=== PATIENT | male | born 1990 | race Caucasian/White ===

== ENCOUNTER 2016-11-06 20:00 | Emergency (ER) | payer MEDICAID, OTHER ==
[2016-11-06] MEDS ORDERED: ONDANSETRON ODT 4 MG TABLET TL STA (20:25)
[2016-11-06] MEDS ORDERED: ONDANSETRON ODT 4 MG TABLET ONE (20:32)
== END 2016-11-06 21:39 | disposition home or self-care (01) ==
DX: S06.0X0A Concussion without loss of consciousness, initial encounter (principal); S00.12XA Contusion of left eyelid and periocular area, initial encounter; M54.2 Cervicalgia; V47.5XXA Car driver injured in collision with fixed or stationary object in traffic accident, initial encounter
CPT/HCPCS: 70450; 72125; 99283; 99284; Q0162

== ENCOUNTER 2017-08-25 08:00 | Outpatient (CLI) | payer MEDICAID ==
[2017-08-25 12:24] LABS: BASOPHILS % (AUTO) 0.5 %; EOSINOPHILS # (AUTO) 0.2 10^3/uL (0.0-0.7); EOSINOPHILS % (AUTO) 1.8 %; HCT - HEMATOCRIT 41.1 % (42.0-52.0); HGB - HEMOGLOBIN 13.9 g/dL (14.0-18.0); LYMPHOCYTES % (AUTO) 32.6 %; MEAN CORPUSCULAR HGB CONC 33.9 g/dL (32.0-36.0); MEAN CORPUSCULAR VOLUME 85.8 fL (80.0-94.0); MEAN PLATELET VOLUME 8.2 fL (7.4-11.4); MONOCYTES # (AUTO) 0.7 10^3/uL (0.0-1.0); MONOCYTES % (AUTO) 8.2 %; NEUTROPHILS # (AUTO) 5.2 10^3/uL (1.5-6.6); NEUTROPHILS % (AUTO) 56.9 %; NUCLEATED RED BLOOD CELLS AUTO 0.1 /100WBC; RED BLOOD COUNT 4.79 10^6/uL (4.70-6.10); RED CELL DISTRIBUTION WIDTH 12.6 % (12.0-15.0); UNCORRECTED WHITE BLOOD COUNT 9.1 x10^3/uL; WHITE BLOOD COUNT 9.1 x10^3/uL (4.8-10.8)
[2017-08-25 12:31] LABS: ALBUMIN/GLOBULIN RATIO 1.5 (1.0-2.2); BILIRUBIN,TOTAL 0.7 mg/dL (0.2-1.0); BUN - BLOOD UREA NITROGEN 13 mg/dL (6-20); CARBON DIOXIDE - CO2 27 mmol/L (21-32); CHLORIDE 101 mmol/L (101-111); CHOL/HDL RATIO 5.5 (<5.0); CHOLESTEROL 215 mg/dL; CREATININE 0.8 mg/dL (0.6-1.2); GFR - MDRD 116 (>89); GLUCOSE 97 mg/dL (70-100); HDL CHOLESTEROL 39 mg/dL; LDL/HDL RATIO 3.5 (<3.6); POTASSIUM 3.8 mmol/L (3.5-5.0); SODIUM 138 mmol/L (135-145); TOTAL PROTEIN 8.1 g/dL (6.7-8.2); TRIGLYCERIDES 190 mg/dL; VLDL CHOLESTEROL 38 mg/dL
[2017-08-25 13:14] LABS: HEMOGLOBIN A1C 0.53 g/dL
== END 2017-08-25 08:01 | disposition home or self-care (01) ==
LOC: LAB.N 08:00
PROVIDERS: ATTEND Physician Assistant Medical
DX: Z82.49 Family history of ischemic heart disease and other diseases of the circulatory system (principal); E66.9 Obesity, unspecified; R10.13 Epigastric pain; Z83.3 Family history of diabetes mellitus
CPT/HCPCS: 36415; 80053; 80061; 83036; 84443; 85025

== ENCOUNTER 2017-11-25 18:41 | Outpatient (CLI) | payer MEDICAID | END 2017-11-25 18:42 | disposition EMS.NT | LOC: EMS 18:41 | PROVIDERS: ATTEND Surgery | DX: R06.02 Shortness of breath (principal); R07.9 Chest pain, unspecified; F41.9 Anxiety disorder, unspecified; R61 Generalized hyperhidrosis ==

== ENCOUNTER 2018-08-11 06:48 | Outpatient (CLI) | payer MEDICAID | END 2018-08-11 06:49 | disposition critical access hospital (66) | LOC: EMS 06:48 | PROVIDERS: ATTEND Surgery | DX: R41.0 Disorientation, unspecified (principal) | CPT/HCPCS: A0425; A0429; A0999 ==

== ENCOUNTER 2018-08-11 07:08 | Emergency (ER) | payer MEDICAID ==
[2018-08-11] MEDS ORDERED: SODIUM CHLORIDE 0.9% 1,000 ML IV ONE (07:33)
--- NOTE | 2018-08-11 07:35 | ED Physician Documentation ---
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 has taken 2 days of suboxone next dose 830 AM was feeling fine last night - no fever cough NVD CP palp etc just his chronic back pain unchanged from prior he awoke on the floor this AM after a syncopal episode SO was asleep so unwitnessed duration, pulse breathing seizure etc all unknown thinks maybe he was up to go urinate he has no TOM or bumps bruises etc to suggest a head injury he feels fine now Review of Systems Constitutional: denies: Fever, Chills Cardiac: denies: Chest pain / pressure Respiratory: denies: Dyspnea, Cough GI: denies: Abdominal Pain Neurologic: reports: Syncope Endocrine: denies: Easy bruising / bleeding Immunocompromised: denies: Immunocompromised PD PAST MEDICAL HISTORY - Past Medical History Psych: Anxiety Musculoskeletal: Chronic back pain - Past Surgical History Past Surgical History: Yes Ortho: Spine surgery - Present Medications Home Medications: Ambulatory Orders Medication Instructions Recorded Confirmed Buprenorphine HCl/Naloxone HCl 1 each 08/11/18 [Suboxone 4 mg-1 mg Sl Film] Mupirocin Calcium [Bactroban] 1 applic TP BID #15 g 08/11/18 - Allergies Allergies/Adverse Reactions: Allergies Allergy/AdvReac Type Severity Reaction Status Date / Time No Known Drug Allergies Allergy Verified 08/11/18 07:20 - Social History Does the pt smoke?: No Smoking Status: Never smoker Does the pt drink ETOH?: Yes Does the pt have substance abuse?: Yes - Immunizations Immunizations are current?: Yes - POLST Patient has POLST: No PD ED PE NORMAL - Vitals Vital signs reviewed: Yes - General General: Alert and oriented X 3 - Neck Neck: Supple, no meningeal sign - Cardiac Cardiac: RRR - Respiratory Respiratory: No respiratory distress - Abdomen Abdomen: Soft, Non tender - Back Back: Other (no redness swellign warmth) - Derm Derm: Normal color, Other - Extremities Extremities: Normal ROM s pain, Other (denuded burn to index s infection) - Neuro Neuro: Alert and oriented X 3, No motor deficit, No sensory deficit Eye Opening: Spontaneous Motor: Obeys Commands Verbal: Oriented GCS Score: 15 - Psych Psych: Normal mood Results - Vitals Vitals: Vital Signs - 24 hr 08/11/18 08/11/18 07:16 08:56 Temperature 36.7 C 36.4 C L Heart Rate 93 85 Respiratory 16 18 Rate Blood Pressure 143/70 H 130/68 O2 Saturation 99 99 Oxygen O2 Source Room air - EKG (time done) 0750 Rate: Rate (enter#) Rhythm: NSR (82) [place]: Normal Intervals: Normal MI QRS: Normal Other comments: Other comments (NSR, nl QT, no delta wave, no ectopy to explain syncope) - Labs Labs: Laboratory Tests 08/11/18 08/11/18 08/11/18 07:30 07:30 08:30 WBC 11.8 H RBC 4.53 L Hgb 13.4 L Hct 39.5 L MCV 87.2 MCH 29.6 MCHC 33.9 RDW 13.0 Plt Count 319 MPV 7.5 Neut # (Auto) 7.7 H Lymph # (Auto) 2.7 [place] # (Auto) 1.0 Eos # (Auto) 0.4 Baso # (Auto) 0.0 Absolute Nucleated RBC 0.01 Nucleated RBC % 0.1 Sodium 136 Potassium 3.5 Chloride 103 Carbon Dioxide 26 Anion Gap 7.0 BUN 13 Creatinine 0.8 Estimated GFR (MDRD) 115 Glucose 100 Calcium 9.4 Urine Color YELLOW Urine Clarity CLEAR Urine pH 6.5 Ur Specific [place] 1.015 Urine Protein NEGATIVE Urine Glucose (UA) NEGATIVE Urine Ketones NEGATIVE Urine Occult Blood NEGATIVE Urine Nitrite NEGATIVE Urine Bilirubin NEGATIVE Urine Urobilinogen 0.2 (NORMAL) Ur Leukocyte Esterase NEGATIVE Ur Microscopic Review NOT INDICATED Urine Culture Comments NOT INDICATED Departure - Departure Disposition: 01 Home, Self Care Clinical Impression: Burn Syncope Qualifiers: Syncope type: unspecified Qualified Code(s): R55 - Syncope and collapse Condition: Good Instructions: ED Fainting Unkn Cause, ED Burn D 2nd Follow-Up: Richa Burt ARNP [Primary Care Provider] - Prescriptions: Mupirocin Calcium [Bactroban] 1 applic TP BID #15 g Comments: Your EKG and several hours of heart monitoring showed no irregular heart rhythm to cause you to pass out. It does not appear you hit you head to cause a concussion etc Your labs are fine I am not sure exactly what happened. But given your reassuring work up and no recurrence of symptoms while in the ER for several hours I think it is safe for you to go home for now Please do not drive for 24 hr Please stay with another adult who can keep an eye on you. And please follow up with your PMD to discuss getting some further testing as an outpatient - such as an ultrasound of your heart and a wear at home heart monitor Forms: Activity restrictions
[2018-08-11 07:42] LABS: BASOPHILS % (AUTO) 0.3 %; EOSINOPHILS # (AUTO) 0.4 10^3/uL (0.0-0.7); EOSINOPHILS % (AUTO) 3.2 %; HGB - HEMOGLOBIN 13.4 g/dL (14.0-18.0); LYMPHOCYTES # (AUTO) 2.7 10^3/uL (1.5-3.5); LYMPHOCYTES % (AUTO) 22.8 %; MEAN CORPUSCULAR HEMOGLOBIN 29.6 pg (27.0-31.0); MEAN CORPUSCULAR HGB CONC 33.9 g/dL (32.0-36.0); MEAN CORPUSCULAR VOLUME 87.2 fL (80.0-94.0); MEAN PLATELET VOLUME 7.5 fL (7.4-11.4); MONOCYTES % (AUTO) 8.8 %; NEUTROPHILS # (AUTO) 7.7 10^3/uL (1.5-6.6); NEUTROPHILS % (AUTO) 64.9 %; PLT - PLATELET COUNT 319 10^3/uL (130-450); RED BLOOD COUNT 4.53 10^6/uL (4.70-6.10); WHITE BLOOD COUNT 11.8 x10^3/uL (4.8-10.8)
[2018-08-11 07:57] LABS: CALCIUM 9.4 mg/dL (8.5-10.3); CREATININE 0.8 mg/dL (0.6-1.2)
[2018-08-11 08:57] VITALS: BP 130/68
[2018-08-11 09:18] LABS: MUDS CUTOFF CONCENTRATIONS CUTOFF CONC BELOW:
[2018-08-11 09:20] LABS: BILIRUBIN,URINE NEGATIVE (NEGATIVE); GLUCOSE, URINE (UA) NEGATIVE (NEGATIVE); KETONES,URINE (UA) NEGATIVE (NEGATIVE); LEUKOCYTE ESTERASE, URINE NEGATIVE (NEGATIVE); NITRITE,URINE NEGATIVE (NEGATIVE); OCCULT BLOOD,URINE NEGATIVE (NEGATIVE); PH,URINE 6.5 PH (5.0-7.5); PROTEIN,URINE NEGATIVE (NEGATIVE); UROBILINOGEN,URINE 0.2 (NORMAL) E.U./dL (NORMAL)
[2018-08-11 09:24] LABS: CLARITY,URINE CLEAR (CLEAR)
[2018-08-11] MEDS ORDERED: ACETAMINOPHEN 325 MG TABLET PO STA (09:26)
[2018-08-11] MEDS ORDERED: IBUPROFEN 800 MG TABLET PO STA (09:26)
[2018-08-11 09:37] LABS: AMPHETAMINE SCREEN,URINE POSITIVE (NEGATIVE); BENZODIAZEPINES SCREEN, URINE NEGATIVE (NEGATIVE); COCAINE SCREEN URINE NEGATIVE (NEGATIVE); METHADONE SCREEN, URINE NEGATIVE (NEGATIVE); METHAMPHETAMINES SCREEN, URINE NEGATIVE (NEGATIVE); OPIATE SCREEN, URINE POSITIVE (NEGATIVE); OXYCODONE SCREEN, URINE POSITIVE (NEGATIVE); PROPOXYPHENE SCREEN, URINE NEGATIVE (NEGATIVE); TRICYCLIC ANTIDEPRESSANT,URINE NEGATIVE (NEGATIVE)
== END 2018-08-11 09:41 | disposition home or self-care (01) ==
LOC: EDUNIT# → ED 07:08
DX: R55 Syncope and collapse (principal); T23.229A Burn of second degree of unspecified single finger (nail) except thumb, initial encounter
CPT/HCPCS: 36415; 80048; 80306; 81003; 85025; 93005; 96360; 99283; A9270; 81001; 87086

== ENCOUNTER 2018-09-19 03:09 | Outpatient (CLI) | payer MEDICAID | END 2018-09-19 03:10 | disposition critical access hospital (66) | LOC: EMS 03:09 | PROVIDERS: ATTEND Surgery | DX: R06.02 Shortness of breath (principal) | CPT/HCPCS: A0425; A0427; A0999 ==

== ENCOUNTER 2018-09-19 03:27 | Emergency (ER) | payer MEDICAID ==
[2018-09-19 03:35] VITALS: BP 143/85
[2018-09-19] MEDS ORDERED: predniSONE 20 MG TABLET PO STA (03:41)
[2018-09-19] MEDS ORDERED: LEVALBUTEROL 1.25 MG/3 ML NEB INH STA (03:41)
--- NOTE | 2018-09-19 03:45 | ED Physician Documentation ---
History of Present Illness - Stated complaint Stated Complaint: SOB - Chief complaint Chief Complaint: Resp - Additonal information Additional information: hx from pt 28 male drug use (he states heroin and marijuana, states smokes only no IVDA, last used both this AM) also hx asthma and his whole family has been sick with colds (all took OTC meds and got better s medical tx) no travel he has been sich recently with a bad cough smoked some marijuana this AM and started wheezing and was SOA so called 911 got duoneb en route feeling better no Review of Systems Constitutional: denies: Fever Throat: denies: Sore throat Respiratory: reports: Cough, Wheezing GI: denies: Vomiting, Diarrhea Musculoskeletal: denies: Extremity swelling Endocrine: denies: Easy bruising / bleeding Immunocompromised: denies: Immunocompromised PD PAST MEDICAL HISTORY - Past Medical History Respiratory: Asthma Psych: Anxiety Musculoskeletal: Chronic back pain - Past Surgical History Past Surgical History: Yes Ortho: Spine surgery - Present Medications Home Medications: Ambulatory Orders Medication Instructions Recorded Confirmed Buprenorphine HCl/Naloxone HCl 1 each 08/11/18 [Suboxone 4 mg-1 mg Sl Film] Mupirocin Calcium [Bactroban] 1 applic TP BID #15 g 08/11/18 Albuterol Sulfate [Proair Hfa 2 puffs INH Q4H PRN #1 inhaler 09/19/18 Inhaler] predniSONE [Prednisone] 60 mg PO DAILY 5 Days tablet 09/19/18 - Allergies Allergies/Adverse Reactions: Allergies Allergy/AdvReac Type Severity Reaction Status Date / Time No Known Drug Allergies Allergy Verified 09/19/18 03:34 - Social History Does the pt smoke?: No Smoking Status: Never smoker Does the pt drink ETOH?: Yes Does the pt have substance abuse?: Yes Substance Use and Type: Marijuana, Heroin - Immunizations Immunizations are current?: Yes - POLST Patient has POLST: No PD ED PE NORMAL - Vitals Vital signs reviewed: Yes (tachy) - General General: Alert and oriented X 3 - Neck Neck: Supple, no meningeal sign - Cardiac Cardiac: RRR, No murmur - Respiratory Respiratory: No respiratory distress, Other (coarse and decreased) - Derm Derm: Normal color - Extremities Extremities: No edema, No calf tenderness / cord - Neuro Neuro: Alert and oriented X 3 Results - Vitals Vitals: Vital Signs - 24 hr 09/19/18 09/19/18 03:29 03:52 Temperature 36.2 C L Heart Rate 133 H 109 H Respiratory 20 16 Rate Blood Pressure 143/85 H O2 Saturation 94 Oxygen O2 Source Room air - Labs Labs: Laboratory Tests 09/19/18 03:49 Influenza A (Rapid) Negative Influenza B (Rapid) Negative - Rads (name of study) CXR Radiology: See rad report (no acute process) PD MEDICAL DECISION MAKING - ED course ED course: HR came down s intervention - likely 2/2 neb tx Departure - Departure Disposition: Home, Self Care Clinical Impression: Bronchitis Asthma Qualifiers: Asthma severity: unspecified severity Asthma persistence: unspecified Asthma complication type: with acute exacerbation Qualified Code(s): J45.901 - Unspecified asthma with (acute) exacerbation Condition: Good Instructions: ED Bronchitis Asthmatic, ED Inhaler Use Prescriptions: Albuterol Sulfate [Proair Hfa Inhaler] 2 puffs INH Q4H PRN #1 inhaler PRN Reason: Shortness Of Air/Wheezing predniSONE [Prednisone] 60 mg PO DAILY 5 Days tablet Comments: The xray does not show pneumonia The flu swabs were negative. Please stop using drugs - we gave you a booklet with information about local resources to help you. Use the inhaler every 4-6 h as needed. And take the steroids once a day to decrease airway swelling
--- NOTE | 2018-09-19 04:25 | XRAY Report ---
Reason: soa Procedure Date: 09/19/2018 Accession Number: [id number] / [id number] Procedure: XR - Chest 2 View X-Ray CPT Code: 86364 FULL RESULT: EXAM: CHEST RADIOGRAPHY EXAM DATE: 09/19/2018 04:12 AM. CLINICAL HISTORY: Shortness of breath. COMPARISON: CHEST 2 VIEW PA/LAT 09/25/2014 9:29 AM. TECHNIQUE: 2 views. FINDINGS: Lungs/Pleura: No alveolar consolidation or pleural effusion seen. No pneumothorax. Mediastinum: Heart and mediastinal contours are unremarkable. Other: None. IMPRESSION: 1. No acute abnormality seen in the chest. RADIA
== END 2018-09-19 04:52 | disposition home or self-care (01) ==
LOC: EDUNIT# → ED 03:27
DX: J45.901 Unspecified asthma with (acute) exacerbation (principal); R00.0 Tachycardia, unspecified; F11.10 Opioid abuse, uncomplicated; F12.10 Cannabis abuse, uncomplicated
CPT/HCPCS: 71046; 87275; 87276; 94640; 99283; J7512

== ENCOUNTER 2019-02-24 12:07 | Outpatient (CLI) | payer MEDICAID | END 2019-02-24 12:08 | disposition critical access hospital (66) | LOC: EMS 12:07 | PROVIDERS: ATTEND Surgery | DX: R55 Syncope and collapse (principal) | CPT/HCPCS: A0425; A0427; A0999 ==

== ENCOUNTER 2019-02-24 12:25 | Emergency (ER) | payer MEDICAID ==
[2019-02-24 13:03] LABS: BASOPHILS % (AUTO) 0.3 %; EOSINOPHILS % (AUTO) 0.3 %; HGB - HEMOGLOBIN 13.3 g/dL (14.0-18.0); LYMPHOCYTES # (AUTO) 1.3 10^3/uL (1.5-3.5); LYMPHOCYTES % (AUTO) 11.4 %; MEAN CORPUSCULAR HEMOGLOBIN 29.6 pg (27.0-31.0); MEAN CORPUSCULAR HGB CONC 34.1 g/dL (32.0-36.0); MEAN CORPUSCULAR VOLUME 86.7 fL (80.0-94.0); MEAN PLATELET VOLUME 7.6 fL (7.4-11.4); MONOCYTES # (AUTO) 0.7 10^3/uL (0.0-1.0); MONOCYTES % (AUTO) 6.2 %; NEUTROPHILS % (AUTO) 81.8 %; PLT - PLATELET COUNT 283 10^3/uL (130-450); RED CELL DISTRIBUTION WIDTH 13.1 % (12.0-15.0)
[2019-02-24 13:16] LABS: ALBUMIN 4.5 g/dL (3.2-5.5); ALBUMIN/GLOBULIN RATIO 1.5 (1.0-2.2); BILIRUBIN,TOTAL 0.5 mg/dL (0.2-1.0); CALCIUM 9.2 mg/dL (8.5-10.3); CREATININE 0.8 mg/dL (0.6-1.2); TOTAL PROTEIN 7.6 g/dL (6.7-8.2)
--- NOTE | 2019-02-24 13:44 | ED Physician Documentation ---
History of Present Illness - Stated complaint Stated Complaint: SYNCOPE - Chief complaint Chief Complaint: General - History obtained from History obtained from: Patient, Family, EMS - History of Present Illness Timing: Today - Additonal information Additional information: 28-year-old male who has a narcotic addiction to about 3 g/day and he has been doing this for about 6 months. He is trying to get off of heroin so he has stopped the heroin and he borrowed some Suboxone from someone. Today he has had syncopal episode x3 in his home. These were witnessed by his and he was not otherwise injured. The patient indicates that he has not had anything to eat for 2 days and he has had scant to drink. He has had a similar episode previously with Suboxone and syncope. Following that episode the patient was evaluated at the hospital and he was eventually started on methadone which apparently worked well for him.The patient reports that he had some issues with back pain took some pain medications when he got cut off from the pain clinic for not showing up he eventually started using heroin. Review of Systems Constitutional: reports: Chills, Fatigue, Sweats. denies: Fever Eyes: denies: Decreased vision Ears: denies: Ear pain Nose: denies: Rhinorrhea / runny nose, Congestion Throat: denies: Sore throat Cardiac: denies: Chest pain / pressure, Palpitations Respiratory: denies: Dyspnea, Cough GI: reports: Abdominal Pain, Nausea, Vomiting, Diarrhea : denies: Dysuria, Frequency Skin: denies: Rash Musculoskeletal: reports: Back pain. denies: Neck pain, Extremity pain Neurologic: reports: Syncope. denies: Generalized weakness, Focal weakness, Numbness, Seizure, Headache, Head injury PD PAST MEDICAL HISTORY - Past Medical History Respiratory: Asthma Psych: Anxiety Musculoskeletal: Chronic back pain - Past Surgical History Past Surgical History: Yes Ortho: Spine surgery - Present Medications Home Medications: Ambulatory Orders Medication Instructions Recorded Confirmed Buprenorphine HCl/Naloxone HCl 16 mg PO DAILY 02/24/19 02/24/19 [Suboxone 8 mg-2 mg Sl Film] Promethazine [Phenergan] 25 - 50 mg PO Q6H PRN #10 tab 02/24/19 RX: cloNIDine [Catapres] 0.1 mg PO TID #20 tablet 02/24/19 - Allergies Allergies/Adverse Reactions: Allergies Allergy/AdvReac Type Severity Reaction Status Date / Time No Known Drug Allergies Allergy Verified 02/24/19 12:32 - Social History Does the pt smoke?: No Smoking Status: Never smoker Does the pt drink ETOH?: No Does the pt have substance abuse?: Yes Substance Use and Type: Marijuana, Heroin - Immunizations Immunizations are current?: Yes - POLST Patient has POLST: No PD ED PE NORMAL - Vitals Vital signs reviewed: Yes (normal ) - General General: Alert and oriented X 3, Well developed/nourished, Other (appears pale and speaks softley) - HEENT HEENT: Atraumatic, PERRL, EOMI - Neck Neck: Supple, no meningeal sign - Cardiac Cardiac: No murmur, Other (tachy sitting up to 100) - Respiratory Respiratory: No respiratory distress, Clear bilaterally - Abdomen Abdomen: Soft, Non tender - Back Back: No CVA TTP, No spinal TTP - Derm Derm: Warm and dry, No rash, Other (pale ) - Extremities Extremities: No deformity, No edema - Neuro Neuro: Alert and oriented X 3, learning and development administrator 2-12 intact, No motor deficit, No sensory deficit, Normal speech Eye Opening: Spontaneous Motor: Obeys Commands Verbal: Oriented GCS Score: 15 - Psych Psych: Other (mood is withdrawn and the affect is flat) Results - Vitals Vitals: Vital Signs - 24 hr 02/24/19 02/24/19 02/24/19 12:26 13:19 14:08 Temperature 35.7 C L Heart Rate 68 70 71 Respiratory 11 L 17 18 Rate Blood Pressure 130/69 134/79 H 100/80 O2 Saturation 99 97 97 02/24/19 02/24/19 16:00 16:41 Temperature Heart Rate 83 75 Respiratory 24 13 Rate Blood Pressure 115/81 H 112/62 O2 Saturation 98 96 Oxygen O2 Source Room air Oxygen Flow Rate 3 - Labs Labs: Laboratory Tests 02/24/19 02/24/19 02/24/19 12:58 12:58 13:50 WBC 11.0 H RBC 4.50 L Hgb 13.3 L Hct 39.0 L MCV 86.7 MCH 29.6 MCHC 34.1 RDW 13.1 Plt Count 283 MPV 7.6 Neut # (Auto) 9.0 H Lymph # (Auto) 1.3 L [place] # (Auto) 0.7 Eos # (Auto) 0.0 Baso # (Auto) 0.0 Absolute Nucleated RBC 0.01 Nucleated RBC % 0.1 Sodium 136 Potassium 3.9 Chloride 104 Carbon Dioxide 22 Anion Gap 10.0 BUN 11 Creatinine 0.8 Estimated GFR (MDRD) 115 Glucose 112 H Calcium 9.2 Total Bilirubin 0.5 AST 35 ALT 37 Alkaline Phosphatase 71 Total Protein 7.6 Albumin 4.5 Globulin 3.1 Albumin/Globulin Ratio 1.5 Lipase 25 Urine Color YELLOW Urine Clarity CLEAR Urine pH 7.0 Ur Specific [place] <=1.005 Urine Protein NEGATIVE Urine Glucose (UA) NEGATIVE Urine Ketones NEGATIVE Urine Occult Blood NEGATIVE Urine Nitrite NEGATIVE Urine Bilirubin NEGATIVE Urine Urobilinogen 0.2 (NORMAL) Ur Leukocyte Esterase NEGATIVE Ur Microscopic Review NOT INDICATED Urine Culture Comments NOT INDICATED Urine Opiates Screen POSITIVE H Ur Oxycodone Screen NEGATIVE Urine Methadone Screen NEGATIVE Ur Propoxyphene Screen NEGATIVE Ur Barbiturates Screen NEGATIVE Ur Tricyclics Screen POSITIVE H Ur Phencyclidine Scrn NEGATIVE Ur Amphetamine Screen NEGATIVE U Methamphetamines Scrn NEGATIVE U Benzodiazepines Scrn NEGATIVE Urine Cocaine Screen NEGATIVE U Cannabinoids Screen POSITIVE H Procedures - IVC sono (time) 1340 Bedside IVC sono: IVC measures (cm) (1.33), IVC collapsed c insp (cm) (complete), Dehydration (est 1 liter deficit after 500ml is in.) PD MEDICAL DECISION MAKING - ED course Complexity details: reviewed old records, reviewed results, re-evaluated patient, considered differential, d/w patient, d/w family ED course: 28 y/o male with heroin withdrawal has syncope again after taking suboxone. He is in the early stages of withdrawal and he is dehydrated. He is administered IV bananabag and clonidine. He feels much improved after hydration and we will send him home with a prescription for some clonidine and some promethazine. He does have resources provided to him through the social science manager for the methadone clinic. Departure - Departure Disposition: 01 Home, Self Care Clinical Impression: Narcotic withdrawal, Dehydration Condition: Stable Instructions: ED Dehydration, ED Withdrawal Narcotic Follow-Up: [facility] [Provider Group] Prescriptions: RX: cloNIDine [Catapres] 0.1 mg PO TID #20 tablet Promethazine [Phenergan] 25 - 50 mg PO Q6H PRN #10 tab PRN Reason: Nausea / Vomiting Discharge Date/Time: 02/24/19 16:50
[2019-02-24] MEDS ORDERED: FOLIC ACID INJ 1 MG, THIAMINE INJ 100 MG, MAGNESIUM SULFATE 2 GM, MULTIVITAMIN 10 ML in... IV STA ×5 (13:48)
[2019-02-24] MEDS ORDERED: cloNIDine 0.1 MG TABLET PO STA (13:48)
[2019-02-24] MEDS ORDERED: KETOROLAC 30 MG/ML VIAL IVP STA (13:49)
[2019-02-24 13:57] LABS: MUDS CUTOFF CONCENTRATIONS CUTOFF CONC BELOW:
[2019-02-24 14:03] LABS: BILIRUBIN,URINE NEGATIVE (NEGATIVE); GLUCOSE, URINE (UA) NEGATIVE (NEGATIVE); KETONES,URINE (UA) NEGATIVE (NEGATIVE); LEUKOCYTE ESTERASE, URINE NEGATIVE (NEGATIVE); NITRITE,URINE NEGATIVE (NEGATIVE); OCCULT BLOOD,URINE NEGATIVE (NEGATIVE); PROTEIN,URINE NEGATIVE (NEGATIVE); UROBILINOGEN,URINE 0.2 (NORMAL) E.U./dL (NORMAL)
[2019-02-24 14:09] LABS: CLARITY,URINE CLEAR (CLEAR)
[2019-02-24 14:14] LABS: AMPHETAMINE SCREEN,URINE NEGATIVE (NEGATIVE); BENZODIAZEPINES SCREEN, URINE NEGATIVE (NEGATIVE); COCAINE SCREEN URINE NEGATIVE (NEGATIVE); METHADONE SCREEN, URINE NEGATIVE (NEGATIVE); METHAMPHETAMINES SCREEN, URINE NEGATIVE (NEGATIVE); OPIATE SCREEN, URINE POSITIVE (NEGATIVE); OXYCODONE SCREEN, URINE NEGATIVE (NEGATIVE); PROPOXYPHENE SCREEN, URINE NEGATIVE (NEGATIVE); TRICYCLIC ANTIDEPRESSANT,URINE POSITIVE (NEGATIVE)
[2019-02-24 16:43] VITALS: BP 112/62
== END 2019-02-24 16:50 | disposition home or self-care (01) ==
LOC: EDUNIT# → ED 12:25
DX: F11.23 Opioid dependence with withdrawal (principal); E86.0 Dehydration; R55 Syncope and collapse
CPT/HCPCS: 36415; 80053; 80306; 81003; 83690; 85025; 93005; 96365; 96375; 99284; A9270; J3411; 81001; 87086

== ENCOUNTER 2020-07-29 16:59 | Outpatient (CLI) | payer MEDICAID | END 2020-07-29 17:00 | disposition EMS.NT | LOC: EMS 16:59 | PROVIDERS: ATTEND Surgery | DX: S09.90XA Unspecified injury of head, initial encounter (principal); R42 Dizziness and giddiness; W20.8XXA Other cause of strike by thrown, projected or falling object, initial encounter; Y93.H3 Activity, building and construction ==

== ENCOUNTER 2020-07-29 17:51 | Emergency (ER) | payer MEDICAID ==
[2020-07-29] MEDS ORDERED: LIDOCAINE-EPINEPH-TETRACAINE 3 ML SYRINGE TOP STA (18:13)
[2020-07-29] MEDS ORDERED: TETANUS/DIPHTHERIA/PERTUSSIS 0.5 ML SYRINGE IM ONE (18:13)
[2020-07-29] MEDS ORDERED: IBUPROFEN 800 MG TABLET PO STA (18:13)
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
[2020-07-29] MEDS ORDERED: BUFFERED LIDOCAINE 10 ML SYRINGE SUBQ STA (18:43)
--- NOTE | 2020-07-29 18:43 | CT Report ---
PROCEDURE: HEAD WO INDICATIONS: head inj TECHNIQUE: Noncontrast 4.5 mm thick angled axial sections acquired from the foramen magnum to the vertex. For r adiation dose reduction, the following was used: automated exposure control, adjustment of mA and/or kV according to patient size. COMPARISON: 11/06/2016, 07/18/2013. FINDINGS: Image quality: Diagnostic CSF spaces: Basal cisterns are patent. No extra-axial fluid collections. Ventricles are normal in size and shape. Brain: No midline shift. No intracranial masses or hemorrhage. [place]-white matter interface is norm al. Skull and face: Calvarium and visualized facial bones are intact, without suspicious lesions. Sinuses: Visualized sinuses and mastoids are clear. IMPRESSION: No intracranial hemorrhage is seen. No significant intracranial abnormality is seen. Reviewed by: Chico Navarrete MD on 07/29/2020 5:41 PM AKELDA Approved by: Chico Navarrete MD on 07/29/2020 5:41 PM AKELDA Station ID: [id number]
[2020-07-29 19:12] VITALS: BP 130/59
== END 2020-07-29 19:21 | disposition home or self-care (01) ==
LOC: ED 17:51
DX: S06.0X1A Concussion with loss of consciousness of 30 minutes or less, initial encounter (principal); S01.01XA Laceration without foreign body of scalp, initial encounter; W29.8XXA Contact with other powered hand tools and household machinery, initial encounter; W11.XXXA Fall on and from ladder, initial encounter; Y93.89 Activity, other specified; Z23 Encounter for immunization
CPT/HCPCS: 12002; 70450; 90471; 90715; 99284; A9270

== ENCOUNTER 2020-10-11 15:50 | Outpatient (CLI) | payer MEDICAID ==
[2020-10-11 17:03] VITALS: BP 114/65
--- NOTE | 2020-10-11 17:03 | SLEEP CARE CONSULTATION ---
Information from patient questionnaire entered by Nettie Pierce. I have reviewed and concur with the information entered by Nettie Pierce. This document represents the service I personally performed and the decisions made by me, Patti White ARNP. History of Present Illness Service Date and Time: 10/11/2020 1550 Reason for Visit: New patient (Last seen 2012), Re-establish care Chief Complaint: reports: Unrefreshed sleep, Snoring, Excessive daytime sleepiness, Observed pauses in breathing, Frequent awakenings at night Date of Onset: 1 year Usual bedtime: 9 PM or 10 PM Time it takes to fall asleep: 1 hr to 1 hr 1/2 Snores at night: Yes Observed to quit breathing while asleep: Yes Sleeps alone due to snoring: Yes (sometimes) Number of times waking at night: 3 to 4 Reasons for waking at night: reports: Choking, Snoring, Gasping for air, Bathroom Toss, Turn, or Twitch while sleeping: Yes Recalls having dreams: Yes Usually gets out of bed at: 5 AM or 6 AM Feels refreshed in the morning: No Morning headache: Yes (2 times a week that last 30-1 hr, takes meds with resolution) Sleepy or fatigued during the day: Yes Ever fallen asleep while driving: No Takes day naps: Yes (daily, mostly when watching TV) Dreams during day naps: No Prior sleep studies: Yes Year and Where: 2012 [facility] Type of Sleep Study: Polysomnography Additional HPI information: I had the pleasure of seeing JUSTINO QUINN today regarding the possibility of him having a sleep disorder. His current complaints are snoring, observed pauses in breathing and frequent night awakenings. He had a previous sleep study in 2013 that was not conclusive for significant sleep apnea with an average AHI of 2.2. He has since gained about 35 pounds in last 7 years. His girlfriend has been telling him that he snores loudly and has stopped breathing when sleeping. He has woke up gasping, choking and snoring. He states he has a dry mouth that wakes him up at night too. He feels groggy and not quite awake when he has to get up to the bathroom. He falls asleep daily when watching television or sometimes when looking at his phone. He denies drowsy driving or any accidents due to falling asleep at the wheel. He states it takes him a long time to get to sleep so he takes melatonin nightly. He states he takes 2 10 mg tablets which does help him go to sleep. - Parasomnia Symptoms Ever been unable to move upon waking from sleep: No Walks in sleep: No Talks in sleep: Yes Ever acted out dreams in sleep: Yes (once time) Ever felt weak in the knees when startled or emotional: Yes Bothered by creepy, crawly, restless sensations in legs: Yes Problems with memory or concentration: Yes Subjective Initial Magnolia Sleepiness Scale score: 15 (in 2020 (18 in 2012)) Past Medical History Past Medical History: denies: Hypertension, Diabetes, Arrythmia, Anxiety, Depression, Mood disorder, GERD Social History The patient's occupation not employed. Patient is single and lives in [place]. Have you smoked in the past 12 months: Yes (occasional cigarette now) Quit date: 1 year ago Alcohol use: No Caffeine use: Yes Caffeine amount and frequency: In morning 2 cups Family History Family history of sleep disordered breathing: Yes (Dad has sleep apnea and snoring) Family Hx Sleep Apnea: Father: Snoring, Sleep apnea - Treated () Allergies and Home Medications Drug allergies reviewed: Yes (NKDA) Home medication list reviewed: Yes Allergy and home medication list: melatonin 10 mg x2, most nights Methadone 160 mg daily in morning Review of Systems Cardiovascular: denies: high blood pressure, irregular heart rate or pulse Respiratory: reports: shortness of breath Gastrointestinal: reports: heartburn, nausea Urinary: reports: frequency Neurological: reports: headaches, speech dysfunction Psychiatric: denies: anxiety, depression, mood disorder Ear/Nose/Throat: reports: nasal congestion, sinus problems, nose bleeds, dry mouth/throat, wisdom teeth removed. denies: tonsillectomy Endocrine: reports: too hot or cold. denies: thyroid disease Musculoskeletal: reports: neck pain, back pain, mobility problems Immunologic: reports: sneezing (runny nose). denies: allergies to food or environment Physical Exam Blood Pressure: 114/65 Cuff size: wrist Heart Rate: 70 O2 Saturation: 98 Height: 6 ft 3 in Weight: 310 lb Body Mass Index: 38.7 BMI Classification: Obese Neck circumference: 17 (inches) Nostrils: patent to airflow Turbinates: normal Mouth and throat: narrow oropharynx Uvula visualization: 50% Mallampati Class II Tongue: normal in size Tonsils: 1+ Heart: regular rate and rhythm Lungs: clear bilaterally Impression and Plan 1. Suspected Obstructive Sleep Apnea-Hypopnea Syndrome, as suggested by a history of loud and irregular snoring, observed cessation of breath while asleep, gasping or choking in sleep, morning headache, frequent awakening during the night, unrefreshed sleep, cognitive impairment, and excessive daytime sleepiness. I reviewed with the patient that a narrow oropharynx and obesity are common predisposing factors for obstructive sleep apnea-hypopnea syndrome. I recommend proceeding to polysomnography to confirm the diagnosis and to assess severity. If the patient has significant sleep disordered breathing, a manual CPAP titration study will also be performed to find the optimal treatment pressure. I informed the patient of what the sleep studies involve and after some discussion, obtained agreement to proceed. The pathophysiology of obstructive sleep apnea-hypopnea syndrome was discussed with the patient and health risks of cardiovascular and cerebrovascular disease if not treated. AASM brochure for obstructive sleep apnea-hypopnea syndrome given and reviewed. Risks of drowsy driving discussed in detail and patient advised to avoid long distance driving and to puller over at the first sign of drowsiness. Patient agreed to plan. * Schedule polysomnography +- manual CPAP titration study and return in 1-2 weeks after the study to discuss result and initiate therapy. * Avoid long distance driving or driving when feeling sleepy. * Avoid alcohol, sedative and muscle relaxant around bedtime. * Attempt to lose weight. * Review instructions provided by trained office staff on how to prepare for the sleep study. * Return for follow-up after sleep study completed. Counseling Topics: Weight loss health impact Visit Type: In Office Time Spent with Patient (minutes): 30 Provider Statement: I spent 100% of the Face to Face Visit with the patient with greater than 50% spent counseling the patient and coordination of care.
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
== END 2020-10-11 15:51 | disposition home or self-care (01) ==
LOC: SC 15:50
PROVIDERS: ATTEND Nurse Practitioner Family
DX: G47.10 Hypersomnia, unspecified (principal); R41.89 Other symptoms and signs involving cognitive functions and awareness; G47.8 Other sleep disorders; R51.9 Headache, unspecified; R06.81 Apnea, not elsewhere classified; R06.83 Snoring; E66.9 Obesity, unspecified; Z68.38 Body mass index [BMI] 38.0-38.9, adult
CPT/HCPCS: 99203; 99212

== ENCOUNTER 2020-11-04 10:15 | Outpatient (CLI) | payer MEDICAID | END 2020-11-04 10:16 | disposition home or self-care (01) | LOC: SC 10:15 | PROVIDERS: ATTEND Nurse Practitioner Family | DX: G47.33 Obstructive sleep apnea (adult) (pediatric) (principal); E66.9 Obesity, unspecified; Z68.38 Body mass index [BMI] 38.0-38.9, adult | CPT/HCPCS: 95806 ==

== ENCOUNTER 2020-11-08 15:30 | Outpatient (CLI) | payer MEDICAID ==
--- NOTE | 2020-11-08 15:53 | SLEEP CARE CONSULTATION ---
Information from patient questionnaire entered by Julissa Champagne. I have reviewed and concur with the information entered by Julissa Champagne. This document represents the service I personally performed and the decisions made by , Patti White ARNP. History of Present Illness Service Date and Time: 11/08/2020 1530 Initial [place] Sleepiness Scale score: 15 (in 2020 (18 in 2012)) Current Stuart Sleepiness Scale score: 21 Additional HPI information: JUSTINO QUINN returns for follow up and results of the recently performed home sleep study. I explained the pathophysiology behind obstructive sleep apnea. We then spent quite a bit of time discussing different treatment options. For mild obstructive sleep apnea, surgery and oral appliance are alternatives to nasal CPAP therapy but in moderate or severe cases, nasal CPAP is the most effective and reliable treatment. Because apnea is primarily in supine position, then positional management therapy could be effective. Methods discussed such as positioning with pillows, using a T-shirt with tennis balls in the back, and shown commercial products that have a pillow format on back to prevent supine sleep. I reviewed the impact of weight changes on sleep apnea and strongly recommended losing weight. After some discussion, the patient opted to go with the nasal CPAP therapy. Nasal autoCPAP set at 4-15 cmH20 will be ordered with rationale explained. A manual titration study will be ordered if unable to find optimal pressure with office adjustments. I explained how CPAP machine works with sample devices Respironics Dreamstation and ResAmeriprime [id number] and what to expect when using the machine. Using CPAP every night in order to get used to it was emphasized. Patient advised to put CPAP mask on before getting into bed so as not to fall asleep without CPAP. To assist acclimation to CPAP use, it could also be used for a short time during day while reading or watching TV. The patient was instructed to call the CPAP supplier to discuss any mechanical problem that may occur. If the mask given is uncomfortable or is difficult to keep on through the night even with adjustment, contact the CPAP supplier as many will replace with another mask style if not ified before 30 days. If snoring or perceives is not getting enough air or too much air from the machine, notify this office. AAS patient education PAP tips reviewed and given to patient. Patient does not drink alcohol. Patient was cautioned about risks of drowsy driving until sleepiness symptoms resolve. Sleep Study - Results Type of Sleep Study: Home sleep study Prior sleep studies: Yes Year and Where: 2012 [facility] Polysomnography/Home Sleep Study results: The quality of the study is good. The length of the study is adequate (> 240 minutes). Please also see the tabulated and graphic data. 1. Obstructive Sleep Apnea-Hypopnea (ICD-10 G47.33), severe, with an AHI of 74.0 /hr and karen SaO2 of 80%. During the study, the patient had 620 apneas (611 obstructive, 3 central, 6 mixed) and 45 hypopneas. The longest episode lasted 61.5 seconds. The respiratory events occurred independently of sleep stage and body position (supine AHI was 76.6 and non-supine, 59.50). 2. Hypoxemia (ICD-10 R09.02), moderate, with the lowest oxygen saturation of 80 % and 77.2 minutes with SaO2 under 90%. Baseline oxygen saturation was normal (Average oxygen saturation was 93%). Allergies and Home Medications Home medication list reviewed: Yes (no changes) Review of Systems Review of systems same as previous: Yes (no changes) Physical Exam Heart Rate: 76 O2 Saturation: 98 Height: 6 ft 3 in Weight: 319 lb Body Mass Index: 39.9 BMI Classification: Obese Impression and Plan 1. Obstructive Sleep Apnea-Hypopnea Syndrome, very severe, with lowest oxygen saturation of 80%. Obviously this is the cause of the patients symptoms of unrefreshed sleep, and excessive daytime sleepiness. Positive pressure therapy could benefit his overall health and reduce risks of cardiovascular or cerebrovascular adverse events. As mentioned above, the patient will be started urgently due to the very severe nature of his ODETTE on nasal autoCPAP therapy with pressure set at 4-15 cmH2O. A manual titration study will be completed if unable to find optimal treatment pressure with office adjustments. Compliance guidelines also reviewed. A copy of compliance guidelines will be given for reference at check out. Because the apnea is more severe supine, I instructed to avoid sleeping supine using pillow positioning until able to start CPAP use. 2. Hypoxemia, moderate. His karen oxygen saturation was 80 % and he spent 77.2 minutes with SaO2 under 90%. His baseline oxygen saturation was normal with an average oxygen saturation at 93%. * Nasal auto CPAP therapy, pressure at 4-15 cm H2O. * Attempt to lose weight. * Avoid alcohol consumption near bedtime. * Avoid supine sleep until using CPAP. * The patient is again cautioned about driving until sleepiness completely resolves. * Return one month after CPAP obtained. I will assess response to therapy and compliance at that time. Counseling Topics: Weight loss health impact Visit Type: In Office Time Spent with Patient (minutes): 22 Provider Statement: I spent 100% of the Face to Face Visit with the patient with greater than 50% spent counseling the patient and coordination of care.
== END 2020-11-08 15:31 | disposition home or self-care (01) ==
LOC: SC 15:30
PROVIDERS: ATTEND Nurse Practitioner Family
DX: G47.33 Obstructive sleep apnea (adult) (pediatric) (principal); R09.02 Hypoxemia; E66.9 Obesity, unspecified; Z68.39 Body mass index [BMI] 39.0-39.9, adult
CPT/HCPCS: 99212; 99213

== ENCOUNTER 2021-11-20 12:19 | Day surgery (SDC) | payer MEDICAID ==
[2021-11-20 13:04] LABS: BASOPHILS % (AUTO) 0.2 %; EOSINOPHILS # (AUTO) 0.2 10^3/uL (0.0-0.7); EOSINOPHILS % (AUTO) 1.1 %; HCT - HEMATOCRIT 48.8 % (42.0-52.0); HGB - HEMOGLOBIN 16.4 g/dL (14.0-18.0); LYMPHOCYTES # (AUTO) 1.1 10^3/uL (1.5-3.5); LYMPHOCYTES % (AUTO) 4.9 %; MEAN CORPUSCULAR HEMOGLOBIN 30.3 pg (27.0-31.0); MEAN CORPUSCULAR HGB CONC 33.6 g/dL (32.0-36.0); MEAN CORPUSCULAR VOLUME 90.2 fL (80.0-94.0); MEAN PLATELET VOLUME 10.1 fL (7.4-11.4); MONOCYTES # (AUTO) 1.3 10^3/uL (0.0-1.0); NEUTROPHILS # (AUTO) 18.9 10^3/uL (1.5-6.6); NEUTROPHILS % (AUTO) 87.4 %; PLT - PLATELET COUNT 288 10^3/uL (130-450); RED BLOOD COUNT 5.41 10^6/uL (4.70-6.10); RED CELL DISTRIBUTION WIDTH 12.6 % (12.0-15.0); WHITE BLOOD COUNT 21.6 x10^3/uL (4.8-10.8)
--- NOTE | 2021-11-20 13:10 | ED Physician Documentation ---
PD HPI ABD PAIN - Stated complaint Stated Complaint: ABD PX - Chief complaint Chief Complaint: Abd Pain - History obtained from History obtained from: Patient - History of Present Illness Timing - onset: Yesterday Timing - duration: Days (1) Timing - details: Abrupt onset, Still present Quality: Cramping, Aching, Pain Location: RUQ, Periumbilical Radiation: Upper back. No: Chest, Worsened by: Eating Associated symptoms: Nausea. No: Fever, Vomiting, Diarrhea Similar symptoms before: Has not had sx before Recently seen: Not recently seen Review of Systems Constitutional: reports: Chills, Myalgias. denies: Fever Nose: denies: Rhinorrhea / runny nose, Congestion Throat: denies: Sore throat Respiratory: denies: Cough GI: reports: Abdominal Pain, Nausea, Constipation (no BM for 4 days right now but typically has BM only every couple of days the past year since on methadone for treatment drug addiction. He is doing well on meds with only mild recent med increase from 160 to 165 mg daily.). denies: Abdominal Swelling, Vomiting : denies: Dysuria, Discharge Skin: denies: Rash PD PAST MEDICAL HISTORY - Past Medical History Cardiovascular: None Respiratory: Asthma Psych: Anxiety Musculoskeletal: Chronic back pain - Past Surgical History Past Surgical History: Yes Ortho: Spine surgery - Present Medications Home Medications: Ambulatory Orders Medication Instructions Recorded Confirmed cloNIDine [Catapres] 0.1 mg PO TID #20 tablet 02/24/19 Ibuprofen [Motrin] 800 mg PO Q8H PRN #30 tablet 07/29/20 Gabapentin [Neurontin] 300 mg PO TID 11/20/21 11/20/21 Methadone HCl 165 mg PO DAILY 11/20/21 11/20/21 Rosuvastatin Calcium [Crestor] 20 mg PO 11/20/21 - Allergies Allergies/Adverse Reactions: Allergies Allergy/AdvReac Type Severity Reaction Status Date / Time No Known Drug Allergies Allergy Verified 11/20/21 12:27 - Living Situation Living Situation: reports: Alone Living Arrangement: reports: At home - Social History Does the pt smoke?: No Smoking Status: Never smoker Does the pt drink ETOH?: No Does the pt have substance abuse?: Yes Substance Use and Type: Other (previous narcotic abuse/addiction treated currently with methadone the past 1 1/2 years. Prior to that was Suboxone. ) - Immunizations Immunizations are current?: Yes - POLST Patient has POLST: No PD ED PE NORMAL - Vitals Vital signs reviewed: Yes - General General: Alert and oriented X 3, Well developed/nourished, Other (appears in discomfort due to abd pain.) - HEENT HEENT: Pharynx benign - Neck Neck: Supple, no meningeal sign, No adenopathy - Cardiac Cardiac: RRR, No murmur - Respiratory Respiratory: No respiratory distress, Clear bilaterally - Abdomen Abdomen: Soft, Non distended, No organomegaly, Other (tender mid abdomen to upper central/right abd. Guarding. No percussion nor rebound tenderness. Bowel sounds are diminished. ) - Back Back: No CVA TTP - Derm Derm: Normal color, Warm and dry - Extremities Extremities: Normal ROM s pain, No edema, No calf tenderness / cord - Neuro Neuro: Alert and oriented X 3, No motor deficit, Normal speech Results - Vitals Vitals: Vital Signs - 24 hr 11/20/21 11/20/21 11/20/21 12:27 13:24 14:38 Temperature 36.5 C Heart Rate 84 80 60 Heart Rate [ Brachial] Respiratory 16 20 10 L Rate Blood Pressure 160/100 H 128/75 Blood Pressure [Right Brachial artery] O2 Saturation 97 96 11/20/21 11/20/21 11/20/21 16:36 18:23 19:29 Temperature 36.3 C L Heart Rate 67 70 Heart Rate [ Brachial] Respiratory 22 18 14 Rate Blood Pressure 126/55 L 123/69 Blood Pressure [Right Brachial artery] O2 Saturation 95 95 99 11/20/21 11/20/21 19:55 22:00 Temperature 37.4 C Heart Rate Heart Rate [ 72 78 Brachial] Respiratory 16 16 Rate Blood Pressure Blood Pressure 120/61 [Right Brachial artery] O2 Saturation 100 99 Oxygen O2 Source Room air - Labs Labs: Laboratory Tests 11/20/21 11/20/21 11/20/21 12:59 12:59 14:00 WBC 21.6 H RBC 5.41 Hgb 16.4 Hct 48.8 MCV 90.2 MCH 30.3 MCHC 33.6 RDW 12.6 Plt Count 288 MPV 10.1 Neut # (Auto) 18.9 H Lymph # (Auto) 1.1 L [place] # (Auto) 1.3 H Eos # (Auto) 0.2 Baso # (Auto) 0.0 Absolute Nucleated RBC 0.00 Nucleated RBC % 0.0 Manual Slide Review Indicated Platelet Estimate NORMAL (130-450,000) Platelet Morphology NORMAL APPEARANCE RBC Morph Micro Appear NORMAL APPEARANCE Sodium 134 L Potassium 4.1 Chloride 95 L Carbon Dioxide 29 Anion Gap 10.0 BUN 14 Creatinine 0.9 Estimated GFR (MDRD) 98 Glucose 128 H Calcium 9.7 Total Bilirubin 1.0 AST 41 ALT 41 Alkaline Phosphatase 64 Total Protein 8.4 H Albumin 5.2 Globulin 3.3 Albumin/Globulin Ratio 1.6 Lipase 24 Urine Color YELLOW Urine Clarity CLEAR Urine pH 6.0 Ur Specific Badger 1.020 Urine Protein 100 H Urine Glucose (UA) NEGATIVE Urine Ketones NEGATIVE Urine Occult Blood SMALL H Urine Nitrite NEGATIVE Urine Bilirubin NEGATIVE Urine Urobilinogen 0.2 (NORMAL) Ur Leukocyte Esterase NEGATIVE Urine RBC 6-10 H Urine WBC 0-3 Ur Squamous Epith Cells NONE SEEN Urine Bacteria None Seen Ur Microscopic Review INDICATED Urine Culture Comments NOT INDICATED Nasal Adenovirus (PCR) Nasal B. parapertussis DNA (PCR) Nasal Coronavir 229E PCR Nasal Coronavir HKU1 PCR Nasal Coronavir NL63 PCR Nasal Coronavir OC43 PCR Nasal Enterovir/Rhinovir PCR Nasal Influenza B PCR Nasal Influenza A PCR Nasal Parainfluen 1 PCR Nasal Parainfluen 2 PCR Nasal Parainfluen 3 PCR Nasal Parainfluen 4 PCR Nasal RSV (PCR) Nasal B.pertussis DNA PCR Nasal C.pneumoniae (PCR) Jp Human Metapneumo PCR Nasal M.pneumoniae (PCR) Nasal SARS-CoV-2 (PCR) Urine Opiates Screen NEGATIVE Ur Oxycodone Screen NEGATIVE Urine Methadone Screen POSITIVE H Ur Propoxyphene Screen NEGATIVE Ur Barbiturates Screen NEGATIVE Ur Tricyclics Screen NEGATIVE Ur Phencyclidine Scrn NEGATIVE Ur Amphetamine Screen NEGATIVE U Methamphetamines Scrn NEGATIVE U Benzodiazepines Scrn NEGATIVE Urine Cocaine Screen NEGATIVE U Cannabinoids Screen POSITIVE H 11/20/21 18:30 WBC RBC Hgb Hct MCV MCH MCHC RDW Plt Count MPV Neut # (Auto) Lymph # (Auto) [place] # (Auto) Eos # (Auto) Baso # (Auto) Absolute Nucleated RBC Nucleated RBC % Manual Slide Review Platelet Estimate Platelet Morphology RBC Morph Micro Appear Sodium Potassium Chloride Carbon Dioxide Anion Gap BUN Creatinine Estimated GFR (MDRD) Glucose Calcium Total Bilirubin AST ALT Alkaline Phosphatase Total Protein Albumin Globulin Albumin/Globulin Ratio Lipase Urine Color Urine Clarity Urine pH Ur Specific Badger Urine Protein Urine Glucose (UA) Urine Ketones Urine Occult Blood Urine Nitrite Urine Bilirubin Urine Urobilinogen Ur Leukocyte Esterase Urine RBC Urine WBC Ur Squamous Epith Cells Urine Bacteria Ur Microscopic Review Urine Culture Comments Nasal Adenovirus (PCR) NOT DETECTED Nasal B. parapertussis DNA (PCR) NOT DETECTED Nasal Coronavir 229E PCR NOT DETECTED Nasal Coronavir HKU1 PCR NOT DETECTED Nasal Coronavir NL63 PCR NOT DETECTED Nasal Coronavir OC43 PCR NOT DETECTED Nasal Enterovir/Rhinovir PCR NOT DETECTED Nasal Influenza B PCR NOT DETECTED Nasal Influenza A PCR NOT DETECTED Nasal Parainfluen 1 PCR NOT DETECTED Nasal Parainfluen 2 PCR NOT DETECTED Nasal Parainfluen 3 PCR NOT DETECTED Nasal Parainfluen 4 PCR NOT DETECTED Nasal RSV (PCR) NOT DETECTED Nasal B.pertussis DNA PCR NOT DETECTED Nasal C.pneumoniae (PCR) NOT DETECTED Jp Human Metapneumo PCR NOT DETECTED Nasal M.pneumoniae (PCR) NOT DETECTED Nasal SARS-CoV-2 (PCR) NOT DETECTED Urine Opiates Screen Ur Oxycodone Screen Urine Methadone Screen Ur Propoxyphene Screen Ur Barbiturates Screen Ur Tricyclics Screen Ur Phencyclidine Scrn Ur Amphetamine Screen U Methamphetamines Scrn U Benzodiazepines Scrn Urine Cocaine Screen U Cannabinoids Screen - Rads (name of study) abd CT Radiology: Prelim report reviewed (appendix not seen. Gallbladder wall thickening with fluid around. ), EMP read contemporaneously (appendix appears okay, though slightly large. ), See rad report abd U/S Radiology: Prelim report reviewed (GB wall thickening with pericholecystic fluid c/w cholecystitis. ), See rad report PD MEDICAL DECISION MAKING - ED course Complexity details: reviewed results, re-evaluated patient (improved with IV pain meds. Abd tender more distinctly RUQ. ), considered differential, d/w patient Departure - Departure Disposition: ED Transfer to [facility] Clinical Impression: Acute cholecystitis, Upper abdominal pain Condition: Stable Record reviewed to determine appropriate education?: Yes Discharge Date/Time: 11/20/21 19:33
[2021-11-20 13:17] LABS: ALBUMIN 5.2 g/dL (3.2-5.5); ALBUMIN/GLOBULIN RATIO 1.6 (1.0-2.2); CALCIUM 9.7 mg/dL (8.5-10.3); CREATININE 0.9 mg/dL (0.6-1.2); POTASSIUM 4.1 mmol/L (3.5-5.0); TOTAL PROTEIN 8.4 g/dL (6.7-8.2)
[2021-11-20 13:22] LABS: PLATELET ESTIMATE, MANUAL NORMAL (130-450,000) (NORMAL); PLATELET MORPHOLOGY NORMAL APPEARANCE (NORMAL); RBC MORPHOLOGY (MULTIPLE) NORMAL APPEARANCE (NORMAL); SLIDE REVIEW? Indicated
[2021-11-20] MEDS ORDERED: ONDANSETRON 4 MG/2 ML VIAL IVP STA (13:38)
[2021-11-20] MEDS ORDERED: KETOROLAC 30 MG/ML VIAL IVP STA (13:38)
[2021-11-20] MEDS ORDERED: HYDROmorphone 1 MG/ML CARPUJECT IVP STA ×3 (13:38→17:27)
[2021-11-20] MEDS ORDERED: SODIUM CHLORIDE 0.9% 1,000 ML IV STA (13:39)
[2021-11-20 14:12] LABS: MUDS CUTOFF CONCENTRATIONS CUTOFF CONC BELOW:
[2021-11-20 14:16] LABS: BILIRUBIN,URINE NEGATIVE (NEGATIVE); GLUCOSE, URINE (UA) NEGATIVE (NEGATIVE); KETONES,URINE (UA) NEGATIVE (NEGATIVE); LEUKOCYTE ESTERASE, URINE NEGATIVE (NEGATIVE); NITRITE,URINE NEGATIVE (NEGATIVE); OCCULT BLOOD,URINE SMALL (NEGATIVE); PROTEIN,URINE 100 mg/dL (NEGATIVE); UROBILINOGEN,URINE 0.2 (NORMAL) E.U./dL (NORMAL)
[2021-11-20 14:22] LABS: CLARITY,URINE CLEAR (CLEAR)
[2021-11-20 14:26] LABS: BACTERIA,URINE None Seen /HPF (None Seen); SQUAMOUS EPITHELIAL CELL,UR NONE SEEN (<= Few); WBC,URINE 0-3 /HPF (0-3)
[2021-11-20 14:27] LABS: AMPHETAMINE SCREEN,URINE NEGATIVE (NEGATIVE); BARBITURATE SCREEN,UR NEGATIVE (NEGATIVE); BENZODIAZEPINES SCREEN, URINE NEGATIVE (NEGATIVE); COCAINE SCREEN URINE NEGATIVE (NEGATIVE); METHADONE SCREEN, URINE POSITIVE (NEGATIVE); METHAMPHETAMINES SCREEN, URINE NEGATIVE (NEGATIVE); OPIATE SCREEN, URINE NEGATIVE (NEGATIVE); OXYCODONE SCREEN, URINE NEGATIVE (NEGATIVE); PROPOXYPHENE SCREEN, URINE NEGATIVE (NEGATIVE); THC CANNABINOID SCREEN, URINE POSITIVE (NEGATIVE); TRICYCLIC ANTIDEPRESSANT,URINE NEGATIVE (NEGATIVE)
[2021-11-20] MEDS ORDERED: IOVERSOL 320 100 ML VIAL IVP ONE ×2 (15:05→19:12)
--- NOTE | 2021-11-20 15:41 | CT Report ---
PROCEDURE: Abdomen/Pelvis W INDICATIONS: Abdominal pain, acute, nonlocalized CONTRAST: Intravenous automated contrast. TECHNIQUE: After the administration of intravenous contrast, 5 mm thick sections acquired from the diaphragms to the symphysis. 5 mm thick coronal and sagittal reformats were acquired. For radiation dose reducti on, the following was used: automated exposure control, adjustment of mA and/or kV according to constantino ent size. COMPARISON: None. FINDINGS: Image quality: Excellent. ABDOMEN: Lung bases: Lung bases are clear. Heart size is normal. Solid organs: Liver is enlarged, and demonstrates diffusely decreased density. Gallbladder wall is t hickened, measuring roughly 6 mm. No pericholecystic fat stranding. Spleen is within normal limits. N o cholelithiasis. Biliary system is non dilated. Pancreas enhances normally. No adrenal nodules. Kidneys demonstrate normal size and enhancement, without hydronephrosis. Peritoneum and bowel: Bowel loops demonstrate normal wall thickness and caliber. No free fluid or a ir. Appendix not seen. No evidence of appendicitis. Nodes and vessels: No retroperitoneal or mesenteric adenopathy by size criteria. Aorta and inferior vena cava are normal in size. Miscellaneous: No ventral hernias. PELVIS: Genitourinary: Bladder wall thickness is normal. Miscellaneous: No inguinal hernias or adenopathy. Bones: No suspicious bony lesions. No vertebral body compression fractures. IMPRESSION: 1. Gallbladder wall thickening, possibly indicating cholecystitis. Initial further assessment with jaky overton is recommended. 2. Appendix not seen. No evidence of appendicitis. 3. Hepatic steatosis. Reviewed by: William Marsh MD on 11/20/2021 3:40 PM PST Approved by: William Marsh MD on 11/20/2021 3:40 PM PST Station ID: [id number]
[2021-11-20] MEDS ORDERED: LACTATED RINGERS 1,000 ML IV STA (15:45)
[2021-11-20] MEDS ORDERED: PIPERACILLIN/TAZOBACTAM 3.375 GM in SODIUM CHLORIDE 0.9% MINIBAG 100 ML IV STA (17:00)
--- NOTE | 2021-11-20 17:10 | Ultrasound Report ---
PROCEDURE: Abdomen Limited INDICATIONS: mid/right abd pain, GB thickened on CT. TECHNIQUE: Real-time focused scanning was performed of the abdomen, with image documentation. COMPARISON: CT of abdomen and pelvis from the same day FINDINGS: Liver is borderline enlarged. Hepatic steatosis is seen, no discrete hepatic lesion. Nonmobile stone is seen near neck of gallbladder lumen. There is gallbladder wall thickening, edema a nd pericholecystic fluid. No gross sonographic Norris's sign is seen. There is no intrahepatic biliary ductal dilatation., Bowel that measures up to 8.1 mm in diameter and is mildly prominent. Visualized portion of pancreas shows no gross abnormality. Right kidney measures 13.1 cm in length and 1.9 cm in renal cortical thickness. No hydronephrosis or solid-appearing renal lesion is seen. IMPRESSION: 1. Cholelithiasis with gallbladder wall thickening and pericholecystic fluid consistent with acute ch olecystitis. 2. Dilated common bile duct measures up to 8.1 mm in diameter. No definite choledocholithiasis is see n. 3. Borderline hepatomegaly and hepatic steatosis. Reviewed by: Herrera Ovalles MD on 11/20/2021 5:09 PM PST Approved by: Herrera Ovalles MD on 11/20/2021 5:09 PM PST Station ID: [id number]
[2021-11-20] MEDS ORDERED: PROCHLORPERAZINE 10 MG/2 ML VIAL IVP PRN (17:17)
[2021-11-20] MEDS ORDERED: oxyCODONE 5 MG TABLET PO PRN (17:17)
[2021-11-20] MEDS ORDERED: ONDANSETRON ODT 4 MG TABLET TL PRN (17:17)
[2021-11-20] MEDS ORDERED: PIPERACILLIN/TAZOBACTAM 3.375 GM in SODIUM CHLORIDE 0.9% MINIBAG 100 ML IV SCH (18:00)
[2021-11-20 19:26] LABS: B. PARAPERTUSSIS- RESP PCR PAN NOT DETECTED; B. PERTUSSIS- RESP PCR PANEL NOT DETECTED; C. PNEUMONIAE- RESP PCR PANEL NOT DETECTED; CORONAVIRUS 229E-RESP PCR NOT DETECTED; CORONAVIRUS HKU1-RESP PCR NOT DETECTED; CORONAVIRUS NL63-RESP PCR NOT DETECTED; CORONAVIRUS OC43-RESP PCR NOT DETECTED; HUMAN METAPNEUMOVIRUS NOT DETECTED; INFLUENZA A- RESP PCR PANEL NOT DETECTED; INFLUENZA B - RESP PCR PANEL NOT DETECTED; M. PNEUMONIAE- RESP PCR PANEL NOT DETECTED; PARAINFLUENZA VIRUS 1 NOT DETECTED; PARAINFLUENZA VIRUS 2 NOT DETECTED; PARAINFLUENZA VIRUS 3 NOT DETECTED; PARAINFLUENZA VIRUS 4 NOT DETECTED; RHINOVIRUS/ENTEROVIRUS NOT DETECTED; RSV- RESP PCR PANEL NOT DETECTED; SARS-CoV-2 -RESP PCR PANEL NOT DETECTED
[2021-11-20] MEDS: HYDROmorphone 0.5 MG/0.5 ML SYRINGE IVP PRN (19:47)
[2021-11-20] MEDS: SODIUM CHLORIDE FLUSH 0.9% 10 ML SYRINGE IVP PRN (19:48)
[2021-11-20] MEDS: D5.45NS W/20 MEQ KCL 1,000 ML IV SCH (19:53)
[2021-11-20] MEDS: ONDANSETRON 4 MG/2 ML VIAL IVP PRN (20:38)
[2021-11-20] MEDS: METHADONE 5 MG TABLET PO SCH (21:07)
[2021-11-20] MEDS: PIPERACILLIN/TAZOBACTAM 3.375 GM in SODIUM CHLORIDE 0.9% MINIBAG 100 ML IV SCH (21:09)
[2021-11-20] MEDS: oxyCODONE 5 MG TABLET PO PRN (22:31)
[2021-11-20] MEDS: polyethylene glycoL 3350 17 GM PACKET PO SCH (22:49)
[2021-11-21] MEDS: HYDROmorphone 0.5 MG/0.5 ML SYRINGE IVP PRN ×3 (00:36→10:43)
[2021-11-21] MEDS: SODIUM CHLORIDE FLUSH 0.9% 10 ML SYRINGE IVP SCH ×3 (00:36→16:00)
[2021-11-21] MEDS: ACETAMINOPHEN 325 MG TABLET PO PRN ×2 (00:36→08:42)
[2021-11-21] MEDS: D5.45NS W/20 MEQ KCL 1,000 ML IV SCH ×2 (03:30→11:19)
[2021-11-21] MEDS: PIPERACILLIN/TAZOBACTAM 3.375 GM in SODIUM CHLORIDE 0.9% MINIBAG 100 ML IV SCH ×2 (06:15→12:37)
[2021-11-21] MEDS: METHADONE 5 MG TABLET PO SCH ×2 (07:07→14:34)
[2021-11-21] MEDS: polyethylene glycoL 3350 17 GM PACKET PO SCH (07:40)
[2021-11-21] MEDS: oxyCODONE 5 MG TABLET PO PRN ×2 (08:42→19:51)
[2021-11-21] MEDS: ONDANSETRON 4 MG/2 ML VIAL IVP PRN (08:47)
[2021-11-21] MEDS: SODIUM CHLORIDE FLUSH 0.9% 10 ML SYRINGE IVP PRN (10:44)
--- NOTE | 2021-11-21 12:13 | ANESTHESIA ---
Pre-Anesthesia VS, & Labs - Diagnosis cholecystitis - Procedure laparoscopic cholecystectomy Vital Signs: Temp Pulse Resp BP Pulse Ox 37.1 C 86 18 106/49 L 92 11/21/21 08:15 11/21/21 08:15 11/21/21 08:15 11/21/21 08:15 11/21/21 08:15 Height: 6 ft 3 in Weight (kg): 149.05 kg Body Mass Index: 41.1 BMI Classification: Morbidly Obese - NPO >8 hours - Lab Results Current Lab Results: Laboratory Tests 11/20/21 14:00: Urine Opiates Screen NEGATIVE, Ur Oxycodone Screen NEGATIVE, Urine Methadone Screen POSITIVE H, Ur Propoxyphene Screen NEGATIVE, Ur Barbiturates Screen NEGATIVE, Ur Tricyclics Screen NEGATIVE, Ur Phencyclidine Scrn NEGATIVE, Ur Amphetamine Screen NEGATIVE, U Methamphetamines Scrn NEGATIVE, U Benzodiazepines Scrn NEGATIVE, Urine Cocaine Screen NEGATIVE, U Cannabinoids Screen POSITIVE H 11/20/21 12:59: Sodium 134 L, Potassium 4.1, Chloride 95 L, Carbon Dioxide 29, Anion Gap 10.0, BUN 14, Creatinine 0.9, Estimated GFR (MDRD) 98, Glucose 128 H, Calcium 9.7, Total Bilirubin 1.0, AST 41, ALT 41, Alkaline Phosphatase 64, Total Protein 8.4 H, Albumin 5.2, Globulin 3.3, Albumin/Globulin Ratio 1.6, Lipase 24 11/20/21 12:59: WBC 21.6 H, RBC 5.41, Hgb 16.4, Hct 48.8, MCV 90.2, MCH 30.3, MCHC 33.6, RDW 12.6, Plt Count 288, MPV 10.1, Neut # (Auto) 18.9 H, Lymph # (Auto) 1.1 L, [place] # (Auto) 1.3 H, Eos # (Auto) 0.2, Baso # (Auto) 0.0, Absolute Nucleated RBC 0.00, Nucleated RBC % 0.0, Manual Slide Review Indicated, Platelet Estimate NORMAL (130-450,000), Platelet Morphology NORMAL APPEARANCE, RBC Morph Micro Appear NORMAL APPEARANCE Fish Bones: 11/20/21 12:59 11/20/21 12:59 Home Medications and Allergies Home Medications: Ambulatory Orders Gabapentin [Neurontin] 300 mg PO TID 11/20/21 Methadone HCl 165 mg PO DAILY 11/20/21 Rosuvastatin Calcium [Crestor] 20 mg PO 11/20/21 Active Medications Acetaminophen (Acetaminophen 325 Mg Tablet) 650 mg PO Q4HR PRN PRN Reason: Pain 1 to 4 Last Admin: 11/21/21 08:42 Dose: 650 mg Hydromorphone HCl (Hydromorphone 0.5 Mg/0.5 Ml Syringe) 0.5 mg IVP Q2H PRN PRN Reason: Pain 8 to 10 Last Admin: 11/21/21 10:43 Dose: 0.5 mg Potassium Chloride/Dextrose/Sod Cl (D5.45ns W/20 Meq Kcl) 1,000 mls @ 125 mls/hr IV .Q8H [facility] Last Admin: 11/21/21 11:19 Dose: 125 mls/hr Piperacillin Sod/Tazobactam (Sod 3.375 gm/ Sodium Chloride) 100 mls @ 25 mls/hr IV Q8H [facility] Last Infusion: 11/21/21 10:19 Dose: Infused Methadone HCl (Methadone 5 Mg Tablet) 5 mg PO TID [facility] Last Admin: 11/21/21 07:07 Dose: 5 mg Ondansetron HCl (Ondansetron Odt 4 Mg Tablet) 4 mg TL Q6HR PRN PRN Reason: Nausea / Vomiting Ondansetron HCl (Ondansetron 4 Mg/2 Ml Vial) 4 mg IVP Q6HR PRN PRN Reason: Nausea / Vomiting Last Admin: 11/21/21 08:47 Dose: 4 mg Oxycodone HCl (Oxycodone 5 Mg Tablet) 5 mg PO Q4HR PRN PRN Reason: Pain 5 to 7 Oxycodone HCl (Oxycodone 5 Mg Tablet) 10 mg PO Q4HR PRN PRN Reason: Pain 8 to 10 Last Admin: 11/21/21 08:42 Dose: 10 mg Polyethylene Glycol (Polyethylene Glycol 3350 17 Gm Packet) 17 gm PO DAILY [facility] Last Admin: 11/21/21 07:40 Dose: Not Given Prochlorperazine Edisylate (Prochlorperazine 10 Mg/2 Ml Vial) 10 mg IVP Q6HR PRN PRN Reason: Nausea / Vomiting Last Admin: 11/20/21 22:01 Dose: 10 mg Sodium Chloride (Sodium Chloride Flush 0.9% 10 Ml Syringe) 10 ml IVP PRN PRN PRN Reason: NEEDED PER PROVIDER ORDERS Last Admin: 11/21/21 10:44 Dose: 10 ml Sodium Chloride (Sodium Chloride Flush 0.9% 10 Ml Syringe) 10 ml IVP 0100,0900,1700 [facility] Last Admin: 11/21/21 07:41 Dose: Not Given Gabapentin [Neurontin] 300 mg PO TID 11/20/21 Methadone HCl 165 mg PO DAILY 11/20/21 Rosuvastatin Calcium [Crestor] 20 mg PO 11/20/21 Allergies/Adverse Reactions: Allergies Allergy/AdvReac Type Severity Reaction Status Date / Time No Known Drug Allergies Allergy Verified 11/20/21 12:27 Anes History & Medical History - Anesthetic History Anesthesia Complications: reports: No previous complications - Medical History Cardiovascular: reports: None Pulmonary: reports: Asthma Musculoskeletal: reports: Chronic back pain Smoking Status: Never smoker - Surgical History Orthopedic: reports: Spine surgery Exam General: Oriented x3, Cooperative, Mild distress (pain) Mouth Opening: Greater than 4 Fingerbreadths Neck Mobility: Normal Mallampati classification: II Thyromental Distance: greater than 6 cm Respiratory: Lungs clear Cardiovascular: Regular rate Plan Anesthesia Type: General Consent for Procedure(s) Verified and Reviewed: Yes Code Status: Attempt Resuscitation ASA classification: 2-Mild systemic disease Is this case an emergency?: No
[2021-11-21] MEDS ORDERED: DOCUSATE SODIUM 250 MG CAPSULE PO SCH ×2 (13:00→21:00)
[2021-11-21] MEDS ORDERED: SENNA 8.6 MG TABLET PO SCH ×2 (13:00→21:00)
--- NOTE | 2021-11-21 13:15 | HISTORY & PHYSICAL EXAMINATION ---
Chief Complaint - Chief Complaint Chief Complaint: right upper abdominal pain History of Present Illness - Admitted From Admitted From:: ED - History Obtained From Records Reviewed: yes History obtained from: pt Exam Limitations: none - History of Present Illness HPI Comment/Other: severe right upper quadrant abdominal pain x [address] cholecystitis US gallstone in the neck of the gallbladder History - Past Medical History Cardiovascular: reports: None Respiratory: reports: Asthma Psych: reports: Anxiety Musculoskeletal: reports: Chronic back pain MRSA Hx?: No - Past Surgical History Ortho: reports: Spine surgery - Family & Social History Living arrangement: At home Living Situation: Alone - POLST Patient has POLST: No Meds/Allgy - Home Medications Home Medications: Ambulatory Orders Medication Instructions Recorded Confirmed cloNIDine [Catapres] 0.1 mg PO TID #20 tablet 02/24/19 Ibuprofen [Motrin] 800 mg PO Q8H PRN #30 tablet 07/29/20 Gabapentin [Neurontin] 300 mg PO TID 11/20/21 11/20/21 Methadone HCl 165 mg PO DAILY 11/20/21 11/20/21 Rosuvastatin Calcium [Crestor] 20 mg PO 11/20/21 - Allergies Allergies/Adverse Reactions: Allergies Allergy/AdvReac Type Severity Reaction Status Date / Time No Known Drug Allergies Allergy Verified 11/20/21 12:27 Review of Systems - Other Findings Other Findings: 10 pt ros as above otherwise unremarkable Exam - Vital Signs Reviewed Vital Signs: Yes Vital Signs: Vital Signs x48h Temp Pulse Resp BP Pulse Ox 11/21/21 08:15 37.1 C 86 18 106/49 L 92 - Physical Exam General Appearance: positive: Alert, Mild distress Eyes Bilateral: positive: PERRL, EOMI, No scleral icterus ENT: positive: No signs of dehydration Neck: positive: No JVD Respiratory: positive: No respiratory distress, Breath sounds nml Cardiovascular: positive: Regular rate & rhythm Abdomen: positive: No distention, Other (right upper quadrant tenderness) Neurologic/Psychiatric: positive: Oriented x3 Conclusion/Plan - Problem List (1) Acute cholecystitis Conclusion/Plan: plan cholecystectomy. parq held and consent obtained - Lab Results Fish Bones: 11/20/21 12:59 11/20/21 12:59
[2021-11-21] MEDS ORDERED: BUPIVACAINE 0.5% PF 10 ML VIAL ONE ×2 (14:04→18:21)
[2021-11-21] MEDS ORDERED: LIDOCAINE 2%-EPI 1:100000 20 ML MDV ONE (14:04)
[2021-11-21] MEDS ORDERED: MIDAZOLAM 2 MG/2 ML VIAL ONE (14:30)
[2021-11-21] MEDS ORDERED: ROCURONIUM 50 MG/5 ML VIAL ONE (14:30)
[2021-11-21] MEDS ORDERED: KETOROLAC 30 MG/ML VIAL ONE (14:30)
[2021-11-21] MEDS ORDERED: PROPOFOL 200 MG/20 ML VIAL IVP ONE (14:30)
[2021-11-21] MEDS ORDERED: DEXAMETHASONE 4 MG/ML VIAL ONE (14:30)
[2021-11-21] MEDS ORDERED: ONDANSETRON 4 MG/2 ML VIAL ONE (14:30)
[2021-11-21] MEDS ORDERED: fentaNYL 100 MCG/2 ML VIAL ONE ×2 (14:30→18:40)
[2021-11-21] MEDS ORDERED: LIDOCAINE-MPF 2% 5 ML VIAL ONE (14:30)
[2021-11-21] MEDS ORDERED: BUPIVACAINE 0.5% PF 10 ML VIAL IM ONE ×2 (16:51)
[2021-11-21] MEDS ORDERED: ONDANSETRON 4 MG/2 ML VIAL IVP PRN (16:56)
[2021-11-21] MEDS ORDERED: MORPHINE 2 MG/ML CARPUJECT IVP PRN (16:56)
[2021-11-21] MEDS ORDERED: METOCLOPRAMIDE 10 MG/2 ML VIAL IVP PRN (16:56)
[2021-11-21] MEDS ORDERED: ATROPINE ABBOJECT 1 MG/10 ML SYRINGE IVP PRN (16:56)
[2021-11-21] MEDS ORDERED: HYDROmorphone 0.5 MG/0.5 ML SYRINGE IVP PRN (16:56)
[2021-11-21] MEDS ORDERED: ePHEDrine 50 MG/ML VIAL IVP PRN (16:56)
[2021-11-21] MEDS ORDERED: fentaNYL 100 MCG/2 ML VIAL IVP PRN (16:56)
[2021-11-21] MEDS ORDERED: NALOXONE 0.4 MG/ML VIAL IVP PRN (16:56)
[2021-11-21] MEDS ORDERED: LACTATED RINGERS 1,000 ML IV SCH (17:00)
[2021-11-21] MEDS ORDERED: ACETAMINOPHEN 1,000 MG/100 ML 100 ML IV ONE (17:12)
[2021-11-21] MEDS ORDERED: SUGAMMADEX 200 MG/2 ML VIAL IVP ONE (17:59)
[2021-11-21] MEDS ORDERED: LACTATED RINGERS 300 ML IV ONE (18:37)
[2021-11-21] MEDS ORDERED: KETAMINE 500 MG/10 ML VIAL ONE (18:41)
--- NOTE | 2021-11-21 19:14 | OPERATIVE REPORT ---
Operative Report - General Procedure Date: 11/21/21 Planned Procedure: lap kamlesh Pre-Op Diagnosis: cholecystitis Procedure Performed: lap kamlesh Post Op Diagnosis: acute on chronic cholecystitis - Procedure Note Primary Surgeon: júnior parra Anesthesia Technique: General ET tube, Local Pathology: gallbladder Estimated Blood Loss (mL): 150 Drain/Tube Type: Other (none) Indications: cholecystitis Findings: as above Complications: none - Other Other Information/Narrative: The patient was properly identified, brought to the operating room and placed in supine position. Sequential compression devices were placed. General endotracheal anesthesia was induced. The patient was prepped and draped in a sterile fashion and given preoperative antibiotics. Local anesthetic was given to incision areas. An incision was made in the periumbilical area. Dissection proceeded down to fascia. The fascia was incised lifted upwards and abdomen entered with a Veress needle. CO2 was insufflated to a pressure of 15. An 11 mm trocar followed by a 30 degree scope was placed. There was no evidence of injury from Veress needle or trocar placement. Under direct vision 2 5 mm trochars were placed in the right upper quadrant and an 11 mm trocar was placed in the epigastrium. Body of the gallbladder was retracted anterior after aspirated. The omentum was peeled off the gallbladder. Lateral attachments were partially taken down further mobilizing the gallbladder more anterior and away from the duodenum. The infundibulum of the gallbladder was then retracted right lateral and caudad. With minimal use of cautery a large bare cystic plate area or window was carefully created. A large stone in the neck was removed from the gallbladder to allow better mobilization. The cystic duct was inspected from right lateral and left lateral positions. [] The cystic duct was then clipped at the gallbladder and 3 times slightly proximal and sharply divided. The cystic artery was clipped at the gallbladder and then 2 times slightly proximal and sharply divided. The gallbladder was mobilized off from the bed of the liver with hook cautery. The gallbladder was placed in Endo Catch bag and brought out through the epigastric trocar site. The abdomen was thoroughly irrigated. Hemostasis was assured. Trochars were removed under direct vision. Fascia at the larger trocar sites was closed with [id number] are running 0 Vicryl suture. Subcutaneous tissue was irrigated and skin closed with interrupted 4-0 Monocryl. Dressings were applied. Patient tolerated the procedure well was awakened and brought to recovery in good condition.
--- NOTE | 2021-11-21 20:03 | ANESTHESIA POST OP EVALUATION ---
Anesthesia Post Eval - Post Anesthesia Eval Vitals: Last Vital Signs Temp 37.7 C 11/21/21 19:25 Pulse 86 11/21/21 19:25 Resp 16 11/21/21 19:25 BP 93/58 L 11/21/21 19:25 Pulse Ox 94 11/21/21 19:25 CV Function Including HR & BP: Stable Pain Control: Satisfactory Nausea & Vomiting: Negative Mental Status: Baseline Respiratory Status: Airway Patent Hydration Status: Satisfactory Anesthesia Complications: None
--- NOTE | 2021-11-21 20:26 | Discharge Plan ---
Discharge Plan Problem Reviewed?: Yes Disposition: Home, Self Care Condition: Good Prescriptions: oxyCODONE/ACET 5/325 [Percocet 5 mg/325 mg] 1 each PO Q4-6H PRN #40 tablet PRN Reason: Pain Ondansetron Odt [Zofran Odt] 4 mg PO Q6H PRN #15 tablet PRN Reason: Nausea / Vomiting Diet: Regular (mostly thin liquids for a couple days low fat diet for 2 weeks) Activity Restrictions: No Restrictions Shower Restrictions: No (ok to shower and get the dressings wet) Plan of Treatment: lap kamlesh and antibiotics done Assessment: doing well after surgery Additional Instructions or Follow Up instructions: Follow up in the surgery office in about a week call to make an appointment call with any concerns [phone] No Smoking: If you smoke, Please STOP! Call for help.
--- NOTE | 2021-11-21 20:30 | DISCHARGE SUMMARY ---
"Discharge Summary Admit Date: 11/20/21 Discharge Date: 11/21/21 Discharging Provider: júnior parra md Code Status: Attempt Resuscitation Discharge Facility Name: formerly [facility], [facility] - DIAGNOSES Admission Diagnoses: cholecystitis Discharge Diagnoses with Status of Each Condition: home in good condition - HPI History of Present Illness: acute on chronic cholecystitis - CONSULTS | PROCEDURES Procedures: lap kamlesh and iv abxs - HOSPITAL COURSE Hospital Course: doing well after surgery. pain improved - ALLERGIES Allergies/Adverse Reactions: Allergies Allergy/AdvReac Type Severity Reaction Status Date / Time No Known Drug Allergies Allergy Verified 11/20/21 12:27 - MEDICATIONS Home Medications: Ambulatory Orders Medication Instructions Recorded Confirmed cloNIDine [Catapres] 0.1 mg PO TID #20 tablet 02/24/19 Ibuprofen [Motrin] 800 mg PO Q8H PRN #30 tablet 07/29/20 Gabapentin [Neurontin] 300 mg PO TID 11/20/21 11/20/21 Methadone HCl 165 mg PO DAILY 11/20/21 11/20/21 Rosuvastatin Calcium [Crestor] 20 mg PO 11/20/21 Ondansetron Odt [Zofran Odt] 4 mg PO Q6H PRN #15 tablet 11/21/21 oxyCODONE/ACET 5/325 [Percocet 5 1 each PO Q4-6H PRN #40 tablet 11/21/21 mg/325 mg] - PHYSICAL EXAM AT DISCHARGE General Appearance: positive: No acute distress, Alert Eyes Bilateral: positive: PERRL, EOMI, No scleral icterus ENT: positive: No signs of dehydration Neck: positive: No JVD Respiratory: positive: No respiratory distress Cardiovascular: positive: Regular rate & rhythm Abdomen: positive: Non-tender, No distention Neurologic/Psychiatric: positive: Oriented x3 - LABS Result Diagrams: 11/20/21 12:59 11/20/21 12:59 - FOLLOW UP Follow Up: follow up in the surgery office in about a week call to make an appointment leave the dressings on for 3 to 7 days leave the underlying tapes on until loose hold pressure over incision areas with coughing and sneezing ok to shower and get the dressings wet use miralax, colace, milk of magnesia, prune juice, etc as needed for constipation [phone]"
[2021-11-21 21:23] VITALS: BP 123/65
== END 2021-11-21 21:30 | disposition home or self-care (01) ==
LOC: ED 12:19 → MS2 17:17 → SDS 17:17
PROVIDERS: ATTEND Family Medicine
PROC: 0FT44ZZ Resection of Gallbladder, Percutaneous Endoscopic Approach (ICD-10-PCS; principal; 2021-11-21 15:45)
DX: K80.12 Calculus of gallbladder with acute and chronic cholecystitis without obstruction (principal); Z20.822 Contact with and (suspected) exposure to COVID-19; F11.20 Opioid dependence, uncomplicated; E66.01 Morbid (severe) obesity due to excess calories; Z68.41 Body mass index [BMI] 40.0-44.9, adult
CPT/HCPCS: 0202U; 36415; 47562; 74177; 76705; 80053; 80306; 81001; 83690; 85025; 96374; 99284; 99285; A9270; J0131; J1170; J7120; Q9967; 81003; 87086

== ENCOUNTER 2023-10-28 12:27 | Outpatient (CLI) | payer MEDICAID ==
--- NOTE | 2023-10-28 15:19 | XRAY Report ---
PROCEDURE: Knee 3V LT INDICATIONS: UNSPECIFIED STRIAN OF LLL TECHNIQUE: 3 views of the knee(s) were acquired. COMPARISON: None. FINDINGS: Bones: No fractures or dislocations. No suspicious bony lesions. A small sclerotic focus is present within the lateral tibial plateau suggesting the presence of a small bone island. Soft tissues: No knee joint effusion. No suspicious soft tissue calcifications or masses. IMPRESSION: No acute bony abnormality. If there remains a high clinical concern for fracture, consider cross-sect ional imaging now. If pain persists, consider repeat x-ray in 10-14 days or cross-sectional imaging. Probable small lateral tibial plateau bone island. No prior comparisons are available to determine th e stability of this finding over time. Consider 3 month follow-up to ensure stability using the prese nt film as a baseline. Reviewed by: Kareen Arias MD on 10/28/2023 3:17 PM PST Approved by: Kareen Arias MD on 10/28/2023 3:17 PM PST Station ID: [id number]
== END 2023-10-28 12:28 | disposition home or self-care (01) ==
LOC: DI.N 12:27
PROVIDERS: ATTEND Nurse Practitioner
DX: S86.912A Strain of unspecified muscle(s) and tendon(s) at lower leg level, left leg, initial encounter (principal)

== ENCOUNTER 2023-12-16 21:43 | Emergency (ER) | payer MEDICAID ==
[2023-12-16 22:13] VITALS: BP 124/75; O2SAT 100
--- NOTE | 2023-12-16 23:36 | ED Physician Documentation ---
PD HPI SKIN - Stated complaint Stated Complaint: CONFIRMED CELLULITUS - Chief complaint Chief Complaint: Wound - History obtained from History obtained from: Patient - Additional information Additional information: 33yM previously healthy p/w BL LE cellulitis he had last month and was prescribed doxycycline. patient only took 3 days then lost the prescription. returns today due to pain and redness recurring. denies fever, calf pain, allergen exposure. PD PAST MEDICAL HISTORY - Past Medical History Past Medical History: Yes Cardiovascular: High cholesterol Respiratory: Asthma Neuro: None Endocrine/Autoimmune: None GI: None : None HEENT: None Psych: Anxiety Musculoskeletal: Chronic back pain Derm: None - Past Surgical History Past Surgical History: Yes Ortho: Spine surgery - Present Medications Home Medications: Ambulatory Orders Medication Instructions Recorded Confirmed Doxycycline Hyclate 100 mg PO BID 10 Days #20 tab 12/16/23 - Allergies Allergies/Adverse Reactions: Allergies Allergy/AdvReac Type Severity Reaction Status Date / Time No Known Drug Allergies Allergy Verified 12/16/23 22:08 - Social History Does the pt smoke?: No Smoking Status: Never smoker Does the pt drink ETOH?: No Does the pt have substance abuse?: Yes - Immunizations Immunizations are current?: Yes - POLST Patient has POLST: No PD ED PE NORMAL - Vitals Vital signs reviewed: Yes - General General: Alert and oriented X 3, No acute distress, Well developed/nourished - HEENT HEENT: Atraumatic, PERRL, EOMI - Derm Derm: Normal color, Warm and dry, Other (erythema BL LE extending to midcalf with mild swelling.) - Extremities Extremities: Other (csm intact BL LE) Results - Vitals Vitals: Vital Signs - 24 hr 12/16/23 22:04 Temperature 36.6 C Heart Rate 94 Respiratory 16 Rate Blood Pressure 124/75 O2 Saturation 100 Oxygen O2 Source Room air PD Medical Decision Making - ED course ED course: 33yM p/w mild cellulitis b/l LE. doubt dvt given low risk and no calf tenderness and BL symptoms. antibiotics provided and sent to pharmacy. return precautions given. Departure - Departure Disposition: 01 Home, Self Care Clinical Impression: Cellulitis Condition: Stable Instructions: Cellulitis Dc Prescriptions: Doxycycline Hyclate 100 mg PO BID 10 Days #20 tab Comments: You were seen in the emergency department for cellulitis (skin infection). Antibiotics sent to [facility]. Please follow-up with your primary care provider and return to the emergency department if you have any new or worsening symptoms or other concerns.
[2023-12-17] MEDS: DOXYCYCLINE 100 MG TABLET PO STA
[2023-12-17 00:12] LABS: BASOPHILS # (AUTO) 0.1 10^3/uL (0.0-0.1); BASOPHILS % (AUTO) 0.8 %; EOSINOPHILS # (AUTO) 0.3 10^3/uL (0.0-0.7); EOSINOPHILS % (AUTO) 3.7 %; HCT - HEMATOCRIT 38.2 % (42.0-52.0); HGB - HEMOGLOBIN 12.1 g/dL (14.0-18.0); LYMPHOCYTES # (AUTO) 2.8 10^3/uL (1.5-3.5); LYMPHOCYTES % (AUTO) 36.3 %; MEAN CORPUSCULAR HEMOGLOBIN 27.6 pg (27.0-31.0); MEAN CORPUSCULAR HGB CONC 31.7 g/dL (32.0-36.0); MEAN CORPUSCULAR VOLUME 87.2 fL (80.0-94.0); MONOCYTES # (AUTO) 0.8 10^3/uL (0.0-1.0); MONOCYTES % (AUTO) 10.4 %; NEUTROPHILS # (AUTO) 3.7 10^3/uL (1.5-6.6); NEUTROPHILS % (AUTO) 48.1 %; PLT - PLATELET COUNT 327 10^3/uL (130-450); RED BLOOD COUNT 4.38 10^6/uL (4.70-6.10); RED CELL DISTRIBUTION WIDTH 12.7 % (12.0-15.0); WHITE BLOOD COUNT 7.6 x10^3/uL (4.8-10.8)
[2023-12-17 00:37] LABS: ALBUMIN 4.3 g/dL (3.2-5.5); ALBUMIN/GLOBULIN RATIO 1.6 (1.0-2.2); BILIRUBIN,TOTAL 0.3 mg/dL (0.2-1.0); CALCIUM 9.6 mg/dL (8.5-10.3); CREATININE 0.7 mg/dL (0.6-1.3); POTASSIUM 3.8 mmol/L (3.5-4.5)
== END 2023-12-16 23:40 | disposition home or self-care (01) ==
LOC: ED 21:43
DX: L03.116 Cellulitis of left lower limb (principal); L03.115 Cellulitis of right lower limb; E78.00 Pure hypercholesterolemia, unspecified
CPT/HCPCS: 36415; 80053; 83690; 85025; 99283; A9270

== ENCOUNTER 2023-12-27 00:43 | Emergency (ER) | payer MEDICAID ==
[2023-12-27 01:00] VITALS: BP 138/70; O2SAT 100
[2023-12-27 01:25] LABS: BASOPHILS % (AUTO) 0.6 %; EOSINOPHILS # (AUTO) 0.2 10^3/uL (0.0-0.7); EOSINOPHILS % (AUTO) 3.5 %; HCT - HEMATOCRIT 39.8 % (42.0-52.0); HGB - HEMOGLOBIN 12.4 g/dL (14.0-18.0); LYMPHOCYTES # (AUTO) 2.3 10^3/uL (1.5-3.5); LYMPHOCYTES % (AUTO) 35.9 %; MEAN CORPUSCULAR HEMOGLOBIN 27.6 pg (27.0-31.0); MEAN CORPUSCULAR HGB CONC 31.2 g/dL (32.0-36.0); MEAN CORPUSCULAR VOLUME 88.4 fL (80.0-94.0); MEAN PLATELET VOLUME 8.9 fL (7.4-11.4); MONOCYTES # (AUTO) 0.6 10^3/uL (0.0-1.0); MONOCYTES % (AUTO) 9.8 %; NEUTROPHILS # (AUTO) 3.2 10^3/uL (1.5-6.6); PLT - PLATELET COUNT 337 10^3/uL (130-450); RED CELL DISTRIBUTION WIDTH 12.9 % (12.0-15.0); WHITE BLOOD COUNT 6.4 x10^3/uL (4.8-10.8)
[2023-12-27 01:45] LABS: ALBUMIN 4.5 g/dL (3.2-5.5); ALBUMIN/GLOBULIN RATIO 1.5 (1.0-2.2); BILIRUBIN,TOTAL 0.3 mg/dL (0.2-1.0); CALCIUM 9.9 mg/dL (8.5-10.3); CREATININE 0.7 mg/dL (0.6-1.3); POTASSIUM 3.6 mmol/L (3.5-4.5); TOTAL PROTEIN 7.5 g/dL (6.4-8.9)
[2023-12-27] MEDS: KETOROLAC 15 MG/ML VIAL IVP STA (02:07)
[2023-12-27] MEDS: SODIUM CHLORIDE 0.9% 1,000 ML IV STA (02:08)
[2023-12-27] MEDS: MORPHINE 2 MG/ML CARPUJECT IVP STA (02:08)
[2023-12-27] MEDS ORDERED: iohexoL-300 100 ML VIAL ONE (02:18)
[2023-12-27] MEDS: iohexoL-300 100 ML VIAL IVP ONE (03:18)
--- NOTE | 2023-12-27 04:24 | ED Physician Documentation ---
PD HPI SKIN - Stated complaint Stated Complaint: CELLULITUS - Chief complaint Chief Complaint: Wound - History obtained from History obtained from: Patient - Additional information Additional information: Patient is a 33-year-old male presenting for evaluation of left leg cellulitis. Patient states this been ongoing since November. He was initially seen at [facility]. 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 He also states had a CT scan done. He was given a prescription for doxycycline.He was seen again on December 16 in our emergency department and reports he had recurrence of his symptoms as he only taken 3 days of the antibiotic in November.He states he still has a few pills of the doxycycline left but still has redness and swelling. He has not been able to elevate his legs much as he has been working on updating a nursery. Denies IV drug use. No fevers. Denies chest pain or shortness of air. Review of Systems Constitutional: denies: Fever Cardiac: denies: Chest pain / pressure Respiratory: denies: Dyspnea GI: denies: Abdominal Pain Skin: reports: Rash Musculoskeletal: reports: Extremity swelling PD PAST MEDICAL HISTORY - Past Medical History Cardiovascular: High cholesterol Respiratory: Asthma Neuro: None Endocrine/Autoimmune: None GI: None : None HEENT: None Psych: Anxiety Musculoskeletal: Chronic back pain Derm: None - Past Surgical History Past Surgical History: Yes Ortho: Spine surgery - Present Medications Home Medications: Ambulatory Orders Medication Instructions Recorded Confirmed Doxycycline Hyclate 100 mg PO BID 10 Days #20 tab 12/16/23 Sulfamethox/Trimeth 800/160 1 each PO BID #14 tablet 12/27/23 [Bactrim Ds 800/160] cephALEXin [Keflex] 500 mg PO Q6H #28 cap 12/27/23 - Allergies Allergies/Adverse Reactions: Allergies Allergy/AdvReac Type Severity Reaction Status Date / Time No Known Drug Allergies Allergy Verified 12/16/23 22:08 - Social History Does the pt smoke?: No Smoking Status: Former smoker Does the pt drink ETOH?: No Does the pt have substance abuse?: Yes - Immunizations Immunizations are current?: Yes - POLST Patient has POLST: No PD ED PE NORMAL - General General: Alert and oriented X 3, No acute distress, Well developed/nourished - HEENT HEENT: Atraumatic, Moist mucous membranes - Neck Neck: Supple, no meningeal sign - Cardiac Cardiac: RRR, Strong equal pulses - Respiratory Respiratory: No respiratory distress, Clear bilaterally - Extremities Extremities: Other (Blanching erythema and swelling to left lower extremity from below knee down to foot; No fluctuance, no crepitus; No open wounds or drainage) Results - Vitals Vitals: Vital Signs - 24 hr 12/27/23 00:52 Temperature 36.6 C Heart Rate 105 H Respiratory 20 Rate Blood Pressure 138/70 H O2 Saturation 100 Oxygen O2 Source Room air - Labs Labs: Laboratory Tests 12/27/23 12/27/23 12/27/23 01:17 01:17 01:17 WBC 6.4 RBC 4.50 L Hgb 12.4 L Hct 39.8 L MCV 88.4 MCH 27.6 MCHC 31.2 L RDW 12.9 Plt Count 337 MPV 8.9 Neut # (Auto) 3.2 Lymph # (Auto) 2.3 [place] # (Auto) 0.6 Eos # (Auto) 0.2 Baso # (Auto) 0.0 Absolute Nucleated RBC 0.00 Nucleated RBC % 0.0 Sodium 140 Potassium 3.6 Chloride 104 Carbon Dioxide 29 Anion Gap 7.0 BUN 20 Creatinine 0.7 Estimated GFR (MDRD) 130 Glucose 70 L Lactic Acid 1.6 Calcium 9.9 Total Bilirubin 0.3 AST 20 ALT 24 Alkaline Phosphatase 75 Total Protein 7.5 Albumin 4.5 Globulin 3.0 Albumin/Globulin Ratio 1.5 PD Medical Decision Making - ED course Complexity details: reviewed results, re-evaluated patient, d/w patient ED course: Patient presenting for evaluation of left leg redness and swelling. Recently diagnosed with cellulitis and given a course of doxycycline but states that symptoms have not improved. No fevers.Slightly tachycardic here so labs were obtained. CBC and chemistries without significant findings. CT of the lower extremity was ordered. CT preliminary read indicates generalized soft tissue swelling of the lower leg and foot with no loculated fluid collection. Exam does not suggest necrotizing infection Or septic joint. Neurovascularly intact. Lactic is less than 2. Patient does not have severe sepsis. Will try alternative antibiotic regiment but patient is counseled that if he does not improve with this he should return to the ER for closer recheck. He is also advised on strict return precautions. Encouraged elevation to help with swelling. Records from [facility] reviewed - 11/18/23 - CT scan showing cellulitis throughout left lower leg no discrete abscess collection. Moderate left knee joint effusion. - `Ultrasound with Moran's cyst measuring 5.7 x 2.1 x 1.3 cm. No findings of lower extremity deep venous thrombosis Departure - Departure Disposition: 01 Home, Self Care Clinical Impression: Left leg cellulitis Condition: Stable Instructions: ED Infec Skin Cellulitis Prescriptions: Sulfamethox/Trimeth 800/160 [Bactrim Ds 800/160] 1 each PO BID #14 tablet cephALEXin [Keflex] 500 mg PO Q6H #28 cap Comments: Your white blood cell count today is normal. The CT scan does not show an abscess which would require drainage. You continue to have cellulitis which is an infection of the skin in the left leg and foot. I am going to start you on 2 different antibiotics and [facility] [place]. It is also very important that you try and elevate your legs as this should also help with the swelling. If you develop any worsening symptoms or you are not responding to the antibiotics in the next 48 hours then I would recommend close recheck. Return to the ER with any worsening such as fevers sooner. Forms: PCP List Discharge Date/Time: 12/27/23 04:35
[2023-12-27] MEDS: cephALEXin 250 MG CAPSULE PO STA (04:30)
[2023-12-27] MEDS: SULFAMETH/TRIMETH DS 800/160 MG TABLET PO STA (04:30)
--- NOTE | 2023-12-27 08:08 | CT Report ---
PROCEDURE: Lower Extremity LT W INDICATIONS: worsening cellulitis TECHNIQUE: After administration of contrast 2 mm axial sections acquired of the left lower leg from the level of distal femur to the bottom of left foot, with coronal and sagittal reformats. For radiation dose re duction, the following was used: automated exposure control, adjustment of mA and/or kV according to patient size. CONTRAST: 100 ML OMNI 300 COMPARISON: Left knee radiograph dated 10/28/2023. FINDINGS: Image quality: Excellent. Bones: Alignment of left lower extremity is anatomic. No fracture or dislocation. No suspicious bony lesions. No cortical erosion or abnormal periosteal reaction. No CT evidence of abnormal tibial stre ss injury. Soft tissues: There is extensive subcutaneous soft tissue edema and swelling throughout visualized d istal left thigh, left lower leg extending to left ankle and foot. No discrete drainable peripherally enhancing fluid collection is noted. Moderate left knee joint effusion is seen, no calcified intra-a rticular loose bodies. No area of abnormal intramuscular enhancement. IMPRESSION: 1. Finding is suggestive of generalized cellulitis throughout left lower leg and left ankle and foot. No drainable abscess collection. No enhancing soft tissue mass. Moderate joint effusion, no intra-ar ticular loose bodies. 2. No fracture or dislocation in the included portion of left lower extremity. No CT evidence of oste omyelitis. No significant discrepancies from preliminary readings. Reviewed by: Herrera Ovalles MD on 12/27/2023 8:07 AM PDT Approved by: Herrera Ovalles MD on 12/27/2023 8:07 AM PDT Station ID: [id number]
== END 2023-12-27 04:35 | disposition home or self-care (01) ==
LOC: ED 00:43
DX: L03.116 Cellulitis of left lower limb (principal); Z87.891 Personal history of nicotine dependence
CPT/HCPCS: 36415; 73701; 80053; 83605; 85025; 87040; 96374; 96375; 99284; A9270; Q9967

== ENCOUNTER 2024-01-28 08:00 | Outpatient (CLI) | payer MEDICAID | END 2024-01-28 23:59 | disposition home or self-care (01) | LOC: LAB.WCP 08:00 | PROVIDERS: ATTEND Physician Assistant | DX: L03.116 Cellulitis of left lower limb (principal); S91.302A Unspecified open wound, left foot, initial encounter | CPT/HCPCS: 87070; 87205 ==

== ENCOUNTER 2024-05-06 22:01 | Emergency (ER) | payer MEDICAID ==
--- NOTE | 2024-05-06 22:43 | ED Physician Documentation ---
PD HPI NVD - Stated complaint Stated Complaint: CHILLS/VOMIT/DIZZY - Chief complaint Chief Complaint: General - History obtained from History obtained from: Patient - History of Present Illness Timing - onset: How many days ago (3-4) Timing - duration: Days (3-4) Timing - details: Abrupt onset, Still present Associated symptoms: Fever, Loss of appetite Contributing factors: No: Sick contact, Bad food Similar symptoms before: Has not had sx before Recently seen: Not recently seen Review of Systems Constitutional: reports: Fever, Chills, Myalgias Nose: reports: Rhinorrhea / runny nose, Congestion Throat: reports: Sore throat Cardiac: denies: Chest pain / pressure Respiratory: reports: Dyspnea, Cough, Wheezing GI: reports: Nausea, Vomiting, Diarrhea. denies: Abdominal Pain, Constipation PD PAST MEDICAL HISTORY - Past Medical History Cardiovascular: High cholesterol Respiratory: Asthma Neuro: None Endocrine/Autoimmune: None GI: None : None HEENT: None Psych: Anxiety Musculoskeletal: Chronic back pain Derm: None - Past Surgical History Past Surgical History: Yes Ortho: Spine surgery - Present Medications Home Medications: Ambulatory Orders Medication Instructions Recorded Confirmed Albuterol Sulf [Ventolin Hfa 2 puffs INH QID #1 each 05/07/24 Inhaler] HYDROcod/ACETAM 5/325 [[place] 5/325] 1 ea PO Q6H PRN #12 tablet 05/07/24 Ondansetron Odt [Zofran] 4 mg TL Q6H PRN #10 tablet 05/07/24 - Allergies Allergies/Adverse Reactions: Allergies Allergy/AdvReac Type Severity Reaction Status Date / Time No Known Drug Allergies Allergy Verified 05/06/24 22:12 - Social History Does the pt smoke?: No Smoking Status: Never smoker Does the pt drink ETOH?: No Does the pt have substance abuse?: Yes - Immunizations Immunizations are current?: Yes - POLST Patient has POLST: No PD ED PE NORMAL - Vitals Vital signs reviewed: Yes (tachycardic) - General General: Well developed/nourished, Other (appears ill but alert and conversant. ) - HEENT HEENT: No: Moist mucous membranes - Neck Neck: Supple, no meningeal sign, No adenopathy - Cardiac Cardiac: No murmur. No: RRR - Respiratory Respiratory: No respiratory distress, Clear bilaterally - Abdomen Abdomen: Soft, Non tender - Derm Derm: Normal color, Warm and dry Results - Vitals Vitals: Oxygen O2 Source Room air - Labs Labs: Microbiology 05/06/24 23:10 Group A Strep Throat Culture - Preliminary Throat Laboratory Tests 05/06/24 05/06/24 05/06/24 22:30 22:30 22:30 WBC 21.9 H RBC 4.54 L Hgb 12.6 L Hct 39.4 L MCV 86.8 MCH 27.8 MCHC 32.0 RDW 13.0 Plt Count 273 MPV 9.5 Neut # (Auto) 18.4 H Lymph # (Auto) 1.3 L [place] # (Auto) 2.0 H Eos # (Auto) 0.0 Baso # (Auto) 0.1 Absolute Nucleated RBC 0.00 Band Neuts % (Manual) Not Reportable Abnorm Lymph % (Manual) Not Reportable Nucleated RBC % 0.0 Neutrophils # (Manual) Not Reportable Lymphocytes # (Manual) Not Reportable Monocytes # (Manual) Not Reportable Eosinophils # (Manual) Not Reportable Basophils # (Manual) Not Reportable Differential Comment MANUAL=AUTO DIFF Platelet Estimate NORMAL (130-450,000) Platelet Morphology NORMAL APPEARANCE Sodium 134 L Potassium 3.9 Chloride 98 L Carbon Dioxide 26 Anion Gap 10.0 BUN 9 Creatinine 0.8 Estimated GFR (MDRD) 111 Glucose 101 Calcium 9.9 Magnesium Total Bilirubin 0.5 AST 28 ALT 34 Alkaline Phosphatase 101 Total Protein 7.7 Albumin 4.7 Globulin 3.0 Albumin/Globulin Ratio 1.6 Nasal Adenovirus (PCR) NOT DETECTED Nasal B. parapertussis DNA (PCR) NOT DETECTED Nasal Coronavir 229E PCR NOT DETECTED Nasal Coronavir HKU1 PCR NOT DETECTED Nasal Coronavir NL63 PCR NOT DETECTED Nasal Coronavir OC43 PCR NOT DETECTED Nasal Enterovir/Rhinovir PCR NOT DETECTED Nasal Influenza B PCR NOT DETECTED Nasal Influenza A PCR NOT DETECTED Nasal Parainfluen 1 PCR NOT DETECTED Nasal Parainfluen 2 PCR NOT DETECTED Nasal Parainfluen 3 PCR NOT DETECTED Nasal Parainfluen 4 PCR NOT DETECTED Nasal RSV (PCR) NOT DETECTED Nasal B.pertussis DNA PCR NOT DETECTED Nasal C.pneumoniae (PCR) NOT DETECTED Jp Human Metapneumo PCR NOT DETECTED Nasal M.pneumoniae (PCR) NOT DETECTED Nasal SARS-CoV-2 (PCR) DETECTED A Group A Strep Rapid 05/06/24 05/06/24 22:30 23:10 WBC RBC Hgb Hct MCV MCH MCHC RDW Plt Count MPV Neut # (Auto) Lymph # (Auto) [place] # (Auto) Eos # (Auto) Baso # (Auto) Absolute Nucleated RBC Band Neuts % (Manual) Abnorm Lymph % (Manual) Nucleated RBC % Neutrophils # (Manual) Lymphocytes # (Manual) Monocytes # (Manual) Eosinophils # (Manual) Basophils # (Manual) Differential Comment Platelet Estimate Platelet Morphology Sodium Potassium Chloride Carbon Dioxide Anion Gap BUN Creatinine Estimated GFR (MDRD) Glucose Calcium Magnesium 1.7 Total Bilirubin AST ALT Alkaline Phosphatase Total Protein Albumin Globulin Albumin/Globulin Ratio Nasal Adenovirus (PCR) Nasal B. parapertussis DNA (PCR) Nasal Coronavir 229E PCR Nasal Coronavir HKU1 PCR Nasal Coronavir NL63 PCR Nasal Coronavir OC43 PCR Nasal Enterovir/Rhinovir PCR Nasal Influenza B PCR Nasal Influenza A PCR Nasal Parainfluen 1 PCR Nasal Parainfluen 2 PCR Nasal Parainfluen 3 PCR Nasal Parainfluen 4 PCR Nasal RSV (PCR) Nasal B.pertussis DNA PCR Nasal C.pneumoniae (PCR) Jp Human Metapneumo PCR Nasal M.pneumoniae (PCR) Nasal SARS-CoV-2 (PCR) Group A Strep Rapid Negative PD Medical Decision Making - ED course Complexity details: reviewed results (COVID positive. Chemistry panel okay with mild low sodium 134. Normal creatinine. ELevated WBC at 21K. ), re-evaluated patient (he is feeling improved with IV fluids 2 liters, toradol and Zofran for symptoms. Then Dilaudid for general ahces/pains. Albuterol MDI for dyspnea. Feeling fairly well improved. ), considered differential (has felt ill, flu-like with nausea and vomiting, chills. Feeling weak. Tachycardeic presenting.Can give IV fluids and test basic bloods (cbc, chem). ), d/w patient Departure - Departure Disposition: 01 Home, Self Care Clinical Impression: COVID-19, Volume depletion, Acute viral syndrome Condition: Stable Instructions: ED Viral Syndrome Prescriptions: HYDROcod/ACETAM 5/325 [[place] 5/325] 1 ea PO Q6H PRN #12 tablet PRN Reason: Pain Albuterol Sulf [Ventolin Hfa Inhaler] 2 puffs INH QID #1 each Ondansetron Odt [Zofran] 4 mg TL Q6H PRN #10 tablet PRN Reason: Nausea / Vomiting Comments: Your viral panel tested positive for COVID. This would explain your symptoms with the cough and not feeling well and aches and nausea etc. Your strep test was negative. Your basically Chem Ej panel showed a slightly low potassium but not too bad. Try to stay well-hydrated. I would consider some frequent Tylenol every 4-6 hours for the next several days just to preempt some of the fevers and aches. Ondansetron if needed for nausea. I would suggest using the albuterol inhaler 2 puffs 4 times daily for the next several days to week. Commonly even after you are "feeling better" from COVID there can be a persisting fatigue achiness and cough for several weeks up to a month. Continue with good hydration, Tylenol and the inhaler for the symptoms. Typically the worst symptoms last about a week. I did write for some moderate pain medicine to use if needed for body aches and could also act as a cough suppressant if needed. This would be just if needed. With regard to your infant, just watch for poor interaction repetitive vomiting lessened intake to the point of less send diaper wet but wetting etc. Otherwise if there is just fussiness and some decreased intake but otherwise wetting diapers and doing okay enough then no particular evaluation would be needed. You can certainly call and talk to your home comfort advisor if there is concerns or here at the ER. Forms: PCP List Discharge Date/Time: 05/07/24 01:10
[2024-05-06 22:53] LABS: BASOPHILS # (AUTO) 0.1 10^3/uL (0.0-0.1); BASOPHILS % (AUTO) 0.2 %; HCT - HEMATOCRIT 39.4 % (42.0-52.0); HGB - HEMOGLOBIN 12.6 g/dL (14.0-18.0); LYMPHOCYTES # (AUTO) 1.3 10^3/uL (1.5-3.5); MEAN CORPUSCULAR HEMOGLOBIN 27.8 pg (27.0-31.0); MEAN CORPUSCULAR VOLUME 86.8 fL (80.0-94.0); MEAN PLATELET VOLUME 9.5 fL (7.4-11.4); MONOCYTES % (AUTO) 9.3 %; NEUTROPHILS # (AUTO) 18.4 10^3/uL (1.5-6.6); PLT - PLATELET COUNT 273 10^3/uL (130-450); RED BLOOD COUNT 4.54 10^6/uL (4.70-6.10); WHITE BLOOD COUNT 21.9 x10^3/uL (4.8-10.8)
[2024-05-06 23:06] LABS: ALBUMIN 4.7 g/dL (3.2-5.5); ALBUMIN/GLOBULIN RATIO 1.6 (1.0-2.2); BILIRUBIN,TOTAL 0.5 mg/dL (0.2-1.0); CALCIUM 9.9 mg/dL (8.5-10.3); CREATININE 0.8 mg/dL (0.6-1.3); POTASSIUM 3.9 mmol/L (3.5-4.5); TOTAL PROTEIN 7.7 g/dL (6.4-8.9)
[2024-05-06] MEDS: ONDANSETRON 4 MG/2 ML VIAL IVP STA (23:17)
[2024-05-06] MEDS: KETOROLAC 30 MG/ML VIAL IVP STA (23:17)
[2024-05-06] MEDS: SODIUM CHLORIDE 0.9% 1,000 ML IV STA (23:18)
[2024-05-06 23:25] LABS: RAPID STREP SCREEN Negative (Negative)
[2024-05-06] MEDS: ALBUTEROL 1 PUFF INH STA (23:45)
[2024-05-06 23:50] LABS: CORONAVIRUS 229E-RESP PCR NOT DETECTED; CORONAVIRUS HKU1-RESP PCR NOT DETECTED; CORONAVIRUS NL63-RESP PCR NOT DETECTED; CORONAVIRUS OC43-RESP PCR NOT DETECTED
[2024-05-06 23:51] LABS: DIFFERENTIAL COMMENT MANUAL=AUTO DIFF; PLATELET ESTIMATE, MANUAL NORMAL (130-450,000) (NORMAL); PLATELET MORPHOLOGY NORMAL APPEARANCE (NORMAL)
[2024-05-06 23:52] LABS: B. PARAPERTUSSIS- RESP PCR PAN NOT DETECTED; B. PERTUSSIS- RESP PCR PANEL NOT DETECTED; C. PNEUMONIAE- RESP PCR PANEL NOT DETECTED; HUMAN METAPNEUMOVIRUS NOT DETECTED; INFLUENZA A- RESP PCR PANEL NOT DETECTED; INFLUENZA B - RESP PCR PANEL NOT DETECTED; M. PNEUMONIAE- RESP PCR PANEL NOT DETECTED; PARAINFLUENZA VIRUS 1 NOT DETECTED; PARAINFLUENZA VIRUS 2 NOT DETECTED; PARAINFLUENZA VIRUS 3 NOT DETECTED; PARAINFLUENZA VIRUS 4 NOT DETECTED; RHINOVIRUS/ENTEROVIRUS NOT DETECTED; RSV- RESP PCR PANEL NOT DETECTED; SARS-CoV-2 -RESP PCR PANEL DETECTED
[2024-05-07] MEDS: LACTATED RINGERS 1,000 ML IV STA (00:04)
[2024-05-07] MEDS: oxyCODONE 5 MG TABLET PO STA (01:05)
[2024-05-07] MEDS: ONDANSETRON ODT 4 MG Prepack 2 TL PRN (01:05)
[2024-05-07] MEDS: HYDROmorphone 0.5 MG/0.5 ML SYRINGE IVP STA (01:10)
[2024-05-07 01:13] VITALS: BP 134/81; O2SAT 97
== END 2024-05-07 01:10 | disposition home or self-care (01) ==
LOC: ED 22:01
DX: U07.1 COVID-19 (principal); B34.9 Viral infection, unspecified; E86.9 Volume depletion, unspecified; J45.909 Unspecified asthma, uncomplicated
CPT/HCPCS: 36415; 80053; 83735; 85025; 87070; 87077; 87430; 87633; 94640; 94664; 96361; 96374; 99284; A9270; J7120